=== PATIENT | female | born 1935 | race Caucasian/White ===

== ENCOUNTER → 2017-09-09 | Outpatient (CLI) | payer MEDICARE, BC | LOC: MC.RAD 13:28 | DX: Z12.31 Encounter for screening mammogram for malignant neoplasm of breast (principal) ==

== ENCOUNTER 2019-06-22 15:14 | Inpatient (IN) | payer MEDICARE, BC ==
[~2019-06-22] VITALS: Ht 152.4 cm; Wt 75.0 kg
[~2019-06-22 15:14] MED LIST: ALDACTONE 25MG25 M1 PO; ASPIRIN E.C. 8181 MG PO; BENADRYL25 M2 PO; CRANBERRY FRUI425 MG PO; DAZIDOX10 MG PO; LOPRESSOR 550 MG/TAB PO; Lidocaine 4% Patch TP; MEDROL 4MG DOSPA4 MG PO; MIRALAX PA17 GM/Dose PO; PEPCID AC 10MG10 MG PO; REQUIP 0.5MG0.5 MG PO; SENNA-S 50 MG-81 TAB PO; STOOL SOFTENER100 M2 PO; TIMOLOL MALEATE5 M1 OU; TOPROL XL 50MG50 MG PO; TYLENOL 325MG325 MG PO; VITAMIN D31000 I1 PO; VOLTAREN GEL 1%1 TU TP; XALATAN EYE DROPS OU
[2019-06-22 18:36] VITALS: BP 179/79; PULSE 89; TEMP 97.5
--- NOTE | 2019-06-22 23:55 | NUR ---
Pt. laying in bed at this time. Pt. is A&OX3, assessment complete. Pt. reported back pain at a 7 on pain scale, gave pain meds per orders. Pt. denies further needs, call light within reach.
[2019-06-23 06:10] VITALS: BP 156/66; PULSE 83; TEMP 97.5
[2019-06-23 15:57] VITALS: BP 163/62; PULSE 86; TEMP 97.9
--- NOTE | 2019-06-23 16:34 | NUR ---
Patient given prn suppository to help with bowel movement this afternoon. Patient had a small BM, but was having excruciating pain when sitting on toilet. Patient is currently lying on in bed on her side. Family is by her side. Will continue to monitor.
--- NOTE | 2019-06-23 16:37 | NUR ---
NEELAM met with the patient and the patient's daughter's (Frances and Danyelle) to complete initial intake, as the patient is new to [facility]. The patient lives alone in [place]. Danyelle and Frances state that they both live in [place]. The patient reports independence with ADLs prior to hospitalization and has a cane. The patient's PCP is Dr. Mustapha Gonsales and she receives her medications at [facility]. She reports no difficulties obtaining her meds. The patient does not have advanced directives in EMR, but she states that she does have a DPOA-HC completed. She states that she designated all three of her children: Frances Chapa (ph#[phone]), Danyelle Baker (ph#[phone]), and Luan Keith. NEELAM then reviewed the IPR Team Conference Note with the patient and patient's daughters and discussed the teams recommendation of re-evaluating next Friday and having a family conference. The patient and her daughters were in agreeance to the plan. A family meeting was scheduled for next Friday, 06/30, at 1015. NEELAM to inform IPR Director and will continue to follow.
--- NOTE | 2019-06-23 18:30 | NUR ---
Patient attended all therapies today. Tolerated diet fairly well. Patient had pain throughout the day see new orders per Dr. Moore for Ibuprofen prn, Cindy changed from scheduled to PRN Q 4 Hours and Tylenol PRN. Patient brought in meds and they were sent to pharmacy to be labeled. Patient pain has been more focused on her upper back thighs and this causes pain of 8-10 when sitting on toilet or shower chair. Patient was given prn suppository and this has helped her with having two small bowel movements. Patient was not able to tolerate sitting on the commode so she was placed on her left side and has been able to go on her bed pad with staff cleaning her up. Will continue to monitor.
--- NOTE | 2019-06-23 21:10 | NUR ---
Family left at this time for the night. Patient alert and oriented. Reports high level of sacral pain and roxycodone 10mg given along with sceheduled meds. Declines snack. States had food earlier about 1 hour ago. Lights turned off.
--- NOTE | 2019-06-24 02:27 | NUR ---
Patient rests with eyes closed. Respirations with ease.
--- NOTE | 2019-06-24 05:00 | NUR ---
Upon return from BSC, patient reports 8/10 pain and roxycodone 10mg given po.
[2019-06-24 05:42] VITALS: BP 143/60; PULSE 75; TEMP 98.7
[2019-06-24 07:09] LABS: BASO # 0.1 (0.0-0.2); BASO % 0.4 % (0.0-2.0); EOS # 0.2 (0.0-0.7); EOS % 1.8 % (0-4.0); GRAN # 10.2 (1.4-6.5); GRAN % 76.9 % (42.2-75.2); HEMATOCRIT 37.5 % (37.0-47.0); LYMPH # 1.5 (1.2-3.4); LYMPH % 11.2 % (20.0-51.0); MEAN CELL VOLUME 88 fl (80.0-100.0); MEAN CORPUSCULAR HEMOGLOBIN 28 pg (27.0-31.0); MEAN CORPUSCULAR HGB CONC 32 g/dl (33.0-37.0); MEAN PLATELET VOLUME 10.1 fl (7.4-10.4); MONO # 1.2 (0.1-0.6); PLATELET COUNT 349 K/mm3 (130-400); RED BLOOD COUNT 4.26 M/mm3 (4.10-5.30); REDCELL DISTRIBUTION WIDTH-CV 12.9 % (11.5-14.5)
[2019-06-24 07:25] LABS: CALCIUM 9.2 mg/dL (8.4-10.2); CREATININE, serum 0.59 (0.52-1.25); POTASSIUM 4.5 mmol/L (3.4-5.0)
--- NOTE | 2019-06-24 08:00 | NUR ---
UPON ENTRY TO THE ROOM THIS MORNING THE PATIENT IS SITTING UP IN THE CHAIR. PATIENT IS A&OX4. VSS. BOWEL SOUNDS ACTIVE ALL FOUR QUADRANTS. PATIENT TOLERATING DIET WITHOUT ANY COMPLAINTS OF N/V. POSITIVE PEDAL PULSES EQUAL BILATERALLY. 1+ PITTING-EDEMA TO BLE. ECCHYMOSIS TO RIGHT EYE NOTED. CALL LIGHT WITHIN REACH. PATIENT DENIES ANY OTHER NEEDS AT THIS TIME.
[2019-06-24 15:03] VITALS: BP 150/69; PULSE 76; TEMP 97.5
--- NOTE | 2019-06-24 18:54 | NUR ---
REPORT GIVEN TO MAYI MARIE.
--- NOTE | 2019-06-25 00:45 | NUR ---
PT UP TO BSC WITH MOD ASSIST TO VOID. PT UNABLE TO TOLERATE SITTING ON BSC VERY LONG- VERY PAINFUL COCCYX AND RT BUTTOCK AREA. PT GETTING APPROX [id number]. HAS GREAT URGENCY AND PRESSURE. BLADDER SCANNED WITH 500CC RESIDULA AFTER VOIDING 100CC CLEAR DILUTE URINE. CALLED ANDRZEJ FLAHERTY. UNABLE TO SPEAK AT THIS TIME. WILL RETURN MY CALL GEOVANNI.
--- NOTE | 2019-06-25 01:57 | NUR ---
DIRECTOR OF ARCHIVES ASSISTED PT TO BSC. VERY PAINFUL. UNABLE TO VOID. PLACED #16FR BURDICK WITH IMMEDIATE RETURN OF CLEAR DILUTE URINE 500CC. ASSISTED BY ALANA Clemente RN CHARGE NURSE. PT RELATES RELIEF NOW.
[2019-06-25 06:00] VITALS: BP 160/68; PULSE 87; TEMP 98.5
--- NOTE | 2019-06-25 07:50 | NUR ---
Report from MAYI Gibson. Pt called for assist sitting up for breakfast. Attempted to toilet, scant void, to chair, needed feet up, could not kevin, to bed on left side, enc to eat, PRN pain meds, pt tearful from pain.
--- NOTE | 2019-06-25 11:12 | NUR ---
NEELAM met with the patient and patient's daughter, Frances. The patient was resting. She states that she had a rough night and morning and that her pain in limiting her, but that she trying to push through. SW provided support. NEELAM informed the patient and her daughter of SW rotation. The patient and her daughter did not have any other questions or concerns at this time.
--- NOTE | 2019-06-25 11:26 | NUR ---
Dr. Moore orderd UA for frequent urgency overnight, now retention, groin pain. Ice pack to low back, repositioned left side with pillow between legs and behind back.
--- NOTE | 2019-06-25 13:41 | NUR ---
Attempted to void, cleansed with benzo wipes.
--- NOTE | 2019-06-25 14:11 | NUR ---
After pt returned to bed from toileting, told daughters she felt urge to go, then was incont in pull up, bladder scanned, PVR 0-40 ml. Palpable firmness in lower abdomen but pt denies pain/tenderness. Pt agreeable to attempt toileting again without any output. Changed. Pt with PT.
[2019-06-25 18:11] VITALS: BP 127/57; PULSE 78; TEMP 97.6
[2019-06-25 18:51] LABS: COLLECTION METHOD CLEAN CATCH
[2019-06-25 19:02] LABS: MUCOUS Present /lpf; PH 5 (5-8); SQUAMOUS EPITHELIAL 0-2 /hpf; URINE APPEARANCE Hazy; URINE BACTERIA Rare /hpf; URINE BILIRUBIN Negative (NEGATIVE); URINE BLOOD 1+ (NEGATIVE); URINE COLOR Yellow; URINE GLUCOSE Negative (NEGATIVE); URINE KETONE Negative (NEGATIVE); URINE LEUKOCYTE ESTERASE 1+ (NEGATIVE); URINE NITRATE Negative (NEGATIVE); URINE PROTEIN(semi-quant) Negative (NEGATIVE); URINE UROBILINOGEN Negative (NEGATIVE)
--- NOTE | 2019-06-25 20:30 | NUR ---
PT RESTING IN BED. FAMILY AT BEDSIDE. VERY SUPPORTIVE. PT STILL HAVING SACRAL/LT BUTTOCK PAIN. SEE MAR FOR PAIN MAD GIVEN. ICE PACK PLACED TO LT BUTTOCK FOR SHORT WHILE. ASSISTED PT TO BSC. URINARY URGENCY THEN VOIDS 0-50CC EACH TIME. PT UNABLE TO TOLERATE SITTING ON BSC BUT A MINUTE OR TWO. TOO PAINFUL. PT WEARS BRIEFS FOR OCCASIONAL INCONTINENCE. WILL BLADDER SCAN WHEN AVAILABLE.
--- NOTE | 2019-06-25 20:39 | NUR ---
BLADDER SCANNED 235CC AFTER VOIDING 50CC CLEAR URINE. ENC PT TO DRINK MORE.
--- NOTE | 2019-06-25 21:20 | NUR ---
Educated pt and two daughters about pain medications and management, enc recording in notebook and wrote how often PRNs available, reminded pt to call for meds. Prior to supper, pt toileted with only BM, then got up again with AIRPLANE PATROL PILOT and had output and sample sent to lab. Report to MAYI Gibson.
--- NOTE | 2019-06-26 04:40 | NUR ---
PT C/O BLADDER PRESSURE. INCONT LG AMT IN BRIEFS. PT CLEANED UP. DESITIN TO REDNESS TOINNER BUTTOCKS AREA. SEE MAR FOR AZO GIVEN.
[2019-06-26 06:02] VITALS: BP 160/71; PULSE 82; TEMP 97.4
--- NOTE | 2019-06-26 11:00 | NUR ---
Patient still reporting severe pain to the back of her upper thighs, given prn pain meds, with some effect. Will continue to monitor.
--- NOTE | 2019-06-26 11:45 | NUR ---
Call placed to Dr. Moore regarding patient having difficulty urinating this morning. Bladder scan completed at 7:40 AM and had urine retention of 278 ml. See new orders per Dr. Moore for Straight Cath UA to be completed and sent out to lab.
[2019-06-26 13:40] LABS: COLLECTION METHOD CATHETER
[2019-06-26 13:54] LABS: MUCOUS Present /lpf; PH 5 (5-8); SQUAMOUS EPITHELIAL 0-2 /hpf; URINE APPEARANCE Clear; URINE BACTERIA None Seen /hpf; URINE BILIRUBIN Negative (NEGATIVE); URINE BLOOD Negative (NEGATIVE); URINE COLOR Amber; URINE GLUCOSE Negative (NEGATIVE); URINE KETONE Negative (NEGATIVE); URINE LEUKOCYTE ESTERASE Negative (NEGATIVE); URINE NITRATE Positive (NEGATIVE); URINE PROTEIN(semi-quant) Negative (NEGATIVE); URINE RBC 0-2 /hpf; URINE UROBILINOGEN >=4.0 mg/dL (NEGATIVE)
[2019-06-26 16:59] VITALS: BP 146/77; PULSE 74; TEMP 97.3
--- NOTE | 2019-06-26 18:08 | NUR ---
Patient attended all therapies today. Tolerated diet well. Has gotten up to use the bathroom multiple times today due to urinary frequency. New urine collection was completed and sent to lab per orders of Dr. Moore. Will continue to monitor. Patient rating pain 8/10 this afternoon and has been given prn pain meds with some effect throught the day. Will continue to monitor.
--- NOTE | 2019-06-26 21:00 | NUR ---
PT RESTING IN BED. FAMILY AT BEDSIDE. VERY SUPPORTIVE. NO NEEDS AT THIS TIME.
[2019-06-27 05:28] VITALS: BP 159/88; PULSE 80; TEMP 97.6
--- NOTE | 2019-06-27 06:37 | NUR ---
PT MOANING LOUDLY. FEELS BLADDER DISCOMFORT AND URGENCY. PT UNABLE TO HOLD URINE UNTIL TRANSFERRED TO BSC. URINATED XLG AMT OF ORANGE (AZ0) INCONTINENT. CHANGE TOP BEDDING. STILL HAVING SOME LT LOW ABD BLADDER SPASM. KPAD STATRED. SEE MAR FOR MOTRIN. PT VERY UPSET WITH Q1H URNARY URGENCY. REASSURED PT.
--- NOTE | 2019-06-27 08:23 | NUR ---
Patient resting in bed at this time. Was a one assist to bed side commode. Urine takes peridium for urine pain, urine is orange at this time. Patient had an incontinent episode this morning of urine. Had a small smeary bowel movement. Will continue to monitor.
[2019-06-27 17:51] VITALS: BP 162/55; PULSE 85; TEMP 97.7
--- NOTE | 2019-06-27 19:19 | NUR ---
Patient went for a walk in the [facility] hallway today and then went for a short ride via wheelchair down stairs with her family to see her dogs. Patient tolerated short trip fairly well. Patient had good urine output today. She is still feeling the pressure/urge to urinate and was given AZO so urine is orange in color. Patient had daughters by her side most of the day today. Patient's buttocks was red and desinex was applied to bottom. Patient tolerated diet well this shift. Pain was controlled with prn Cindy, but family had asked if she could get an order for Robaxine. This was communicated to night nurse to ask Dr. Moore tomorrow.
--- NOTE | 2019-06-27 19:30 | NUR ---
PT RESTING IN BED. FAMILY AT BEDIDE. VERY SUPPORTIVE. DENIES NEEDS AT THIS TIME. CALL LIGHT IN REACH.
--- NOTE | 2019-06-27 19:33 | NUR ---
SHIFT REPORT RECEIVED FROM ALLYSSA BUTTS . REPORTED PT HAD 800CC TOTAL UO ON DAYSHIFT. STILL FREQUENT AND URGENT.
--- NOTE | 2019-06-27 21:00 | NUR ---
ASSISTED TO BSC. PT UNABLE TO VOID. BACK TO BED. BLADDER SCANNED- SHOWED 0CC. PT RELATES HAS URGE. PLACED DIAPER AND VPAD FOR INCONTIENCE. PT INCONT XLARGE AMT OF ORANGE URINE IN DIAPER. PT FEELS IMMEDIATE RELIEF. SEE MAR FOR ANY PAIN MED GIVEN. CALL LIGHT IN REACH. BED ALARM SET. KPAD STARTED FOR PT COMFORT.
[2019-06-28 05:14] VITALS: BP 151/48; PULSE 76; TEMP 98.3
[2019-06-28 05:16] VITALS: BP 151/48
--- NOTE | 2019-06-28 10:05 | NUR ---
Pt toileted but did not void, pull up and pad in place. Son was visiting earlier, daughter here now, reviewed pain med regime again, writing on board.
--- NOTE | 2019-06-28 14:43 | NUR ---
Pt attempted to toilet upon return from PT, unable to void, returned to bed, positioned on left side, pillow between knees and to back with K-Pad to back. Daughters assisting with ordering meals, pain med given.
[2019-06-28 16:35] VITALS: BP 142/98; PULSE 71; TEMP 97.8
--- NOTE | 2019-06-28 19:30 | NUR ---
HS meds along with tramadol and azo for pain and urinary retention given. Patient up mod assist of 1 to the bathroom and voids 250 mls orange urine and rests back in bed. Nurse assists to wipe patient after and assist with pullup up on left side. Daughter at bedside and very attentive. Took bites of cracker with HS meds.
--- NOTE | 2019-06-28 22:35 | NUR ---
Rests quietly in bed with eyes closed. Respirations with ease.
--- NOTE | 2019-06-29 00:43 | NUR ---
Patient awake and up to the bathroom and back to bed. Assisted to repostion up in bed. States has been resting good until now. Ibuprofen given for pain with crackers.
--- NOTE | 2019-06-29 02:44 | NUR ---
Patient rests with eyes closed. Respirations with ease.
[2019-06-29 03:39] VITALS: BP 157/69; PULSE 85; TEMP 98.1
--- NOTE | 2019-06-29 08:45 | NUR ---
Patient resting in recliner at this time, call light in reach, slip proof socks on and call light by her side. Patient reported sleeping pretty good last night. She feels that she had less incontinence last night. Pain 6/10 this morning to back of legs. Given prn pain meds with some effect. Will continue to monitor.
--- NOTE | 2019-06-29 15:34 | NUR ---
SW met with patient and family to follow up and to discuss the family conference that is scheduled. Family reports they will be present for the conference tomorrow at 10:15am. SW will continue to follow.
--- NOTE | 2019-06-29 16:10 | NUR ---
Patient reported having some indegestion at 1545 this afternoon. Requested some Mylanta. Giuliana called see new orders. VSS at this time.
[2019-06-29 16:12] VITALS: BP 157/44; PULSE 76
[2019-06-29 16:52] VITALS: BP 146/63; PULSE 73; TEMP 97.7
--- NOTE | 2019-06-29 19:48 | NUR ---
Patient has not had any more epispodes of indegestion this afternoon. Patient has a history of indegestion and reports that when she is at home she would just go to her med cabinet and take a swig of mylanta. Patient had no jaw pain or arm pain, she had no nausea and VSS at time of the last indigestion episode. Will continue to monitor. Gave report to night nurse.
--- NOTE | 2019-06-29 20:30 | NUR ---
HS meds all reviewed along with roxycodone for pain and given with crackers. Family members in visiting.
--- NOTE | 2019-06-29 21:30 | NUR ---
Reports pain meds helped. Rests in bed.
--- NOTE | 2019-06-30 01:37 | NUR ---
Patient up to BSC per request and has difficulty sitting due to tail bone and back of leg pain. Rests back in bed and pain med given.
[2019-06-30 04:34] VITALS: BP 172/67; PULSE 84; TEMP 97.1
--- NOTE | 2019-06-30 06:19 | NUR ---
Patient up to the bathroom several times during the night to void. Desitin cream applied to inner buttucks.
[2019-06-30 07:18] LABS: CALCIUM 9.1 mg/dL (8.4-10.2); CREATININE, serum 0.62 (0.52-1.25); MAGNESIUM 2.2 mg/dL (1.6-2.3); POTASSIUM 4.7 mmol/L (3.4-5.0)
[2019-06-30 08:30] LABS: GRAN % 70.2 % (42.2-75.2); HEMATOCRIT 35.6 % (37.0-47.0); HEMOGLOBIN 11.2 g/dl (12.5-16.0); MEAN CELL VOLUME 88 fl (80.0-100.0); MEAN CORPUSCULAR HEMOGLOBIN 28 pg (27.0-31.0); MEAN CORPUSCULAR HGB CONC 32 g/dl (33.0-37.0); PLATELET COUNT 409 K/mm3 (130-400); RED BLOOD COUNT 4.03 M/mm3 (4.10-5.30); REDCELL DISTRIBUTION WIDTH-CV 13.2 % (11.5-14.5)
[2019-06-30 08:31] LABS: BASO % 0.3 % (0.0-2.0); EOS # 0.2 (0.0-0.7); EOS % 1.8 % (0-4.0); GRAN # 6.9 (1.4-6.5); LYMPH # 1.6 (1.2-3.4); LYMPH % 16.6 % (20.0-51.0); MEAN PLATELET VOLUME 10.1 fl (7.4-10.4); MONO # 1.1 (0.1-0.6); MONO % 10.8 % (1.7-9.3)
--- NOTE | 2019-06-30 13:32 | NUR ---
SW attended a family conference with patient and her family. IPR director, PT, and OT were also present. IPR director explained the purpose of the conference. PT and OT report patient has made progress but would benefit from another week of therapy. Patient continues to have issues with some seated tasks due to pain. IPR team expressed concern with patient living alone after discharge. Patient's family reports they will stay with patient until she no longer needs supervision with certain tasks. A tentative discharge date was set for Saturday 07/07. Patient will discharge home and receive home health services. SW will follow up with patient at a later time to discuss home health options.
--- NOTE | 2019-06-30 15:16 | NUR ---
SW followed up with patient and daughters to discuss home health. SW provided [email or web address] resource list for patient to review. Patient and daughters report they have used [facility] in the past and would like to use their services again. NEELAM contacted Lisbeth from [facility] and faxed referral.
[2019-06-30 18:00] VITALS: BP 145/45; PULSE 55; TEMP 97.5
--- NOTE | 2019-06-30 19:30 | NUR ---
Pulled INT to patient right forearm. Dr. Moore had DC'd patient's antibiotic. Catheter was intact at time of removal. Patient tolerated well. Secured area with gauze and coban.
--- NOTE | 2019-06-30 20:57 | NUR ---
Urology, Dr. Freeman stopped by to visit with patient and family this evening. He discussed patient using a pessary to help with her bladder issue. Dr. Freeman will be coming by with his PA tomorrow per family's report to measure patient for this device and to discuss it's use. This nurse spoke with family and they are not sure if their mother would be able to use this device. Family would like for nurse to be present in room when patient is seen by Dr. Freeman tomorrow to communicate this as well as report to patient's family what all was discussed and determined. This was communicated to the night nurse.
--- NOTE | 2019-06-30 21:00 | NUR ---
SHIFT REPORT FROM ALLYSSA GOLDMAN. ALLYSSA HAD DC'D RT FA INT NEEDLE ORDERED. ITE CLEAN AND DRY. PT C/O PELVIC PAIN. ALITTLE TOO EARLY FOR OXYCODONE. ASSIST PT TO BSC. VOIDED 150CC SL ESCOBAR CLEAR URINE. MAXIPAD DRY. UNABLE TO TOLERATE SITTING ON BSC LONG D/T INCREASED PAIN. BACK TO BED. SEE MAR FOR PAIN MED. CALL LIGHT IN REACH. BED ALARM SET.
--- NOTE | 2019-06-30 21:04 | NUR ---
Patient's family had requested that patient try using Robaxin to help with pain. See new orders per Dr. Moore to start BID. He said that this medication can cause a lot of drowsiness and to monitor patient for this. If she becomes too drowsy this can be stopped. He put her on a low dose. See additional nursing notes regarding this.
--- NOTE | 2019-07-01 02:41 | NUR ---
COW BUYER ASSISTED TO BSC. PT C/O INCREASED PAIN TO BUTTOCKS/PELVIC AND LEG AREAS. HAD DIFFICULTY TRANSFERRRING BACK TO BED. UNABLE TO EMPTY BLADDER. BLADDER SCAN : 366CC RESIDUAL. PT ABLE TO EMPTY BLADDER BETTER WHILE IN BED. CLEANED UP. SEE MAR FOR PAIN MED GIVEN. PT HAS DIFFICULTY ROM LT AHOUDER- ROTATOR CUFF. CALL LIGHT IN REACH. BED ALARM SET.
[2019-07-01 06:00] VITALS: BP 152/59; PULSE 86; TEMP 97.6
--- NOTE | 2019-07-01 06:20 | NUR ---
PT REPORTS SHE HAD A RESTFUL NIGHT. NO NEEDS AT THIS TIME.
[2019-07-01 16:46] VITALS: BP 156/56; PULSE 85; TEMP 97.5
--- NOTE | 2019-07-01 19:59 | NUR ---
SUMMARY: Report from MAYI Gibson. Pt was incont of urine while supine in bed into pull up with large pad, difficulty voiding on toilet d/t pain. Desitin cream to crack in gluteal cleft, powder under breasts, skin pink. Reviewed PRN pain med plan to alternate between miguel and motrin, pt states she seemed to have better control today. Family visited throughout the day, agreeable to pain PRNs. Pt and family expressed concerns of urology placing Pessary- Frieda Mortensen did exam and did not think pessary appropriate at this time as bladder is not prolapsed, but did recommend f/u OP. Report to MAYI Gibson.
[2019-07-02 04:54] VITALS: BP 157/57; PULSE 92; TEMP 98
--- NOTE | 2019-07-02 13:57 | NUR ---
NEELAM contacted Lisbeth from [facility]. Lisbeth reports she did not get a referral. NEELAM faxed a referral and scanned referral. Lisbeth reports she did receive it and will do their assessment with the patient on the 07/08. superintendent oil well services will continue to follow.
--- NOTE | 2019-07-02 17:12 | NUR ---
Pt incont of BM within pad, pt changed but needed cris cares provided, applied A&D oint to vaginal area and desitin to tailbone. To recliner with feet up and slouched- as pt most comfortable in this position when in the chair. Call lt in reach.
[2019-07-02 18:13] VITALS: BP 114/41; PULSE 77; TEMP 97.4
--- NOTE | 2019-07-02 21:00 | NUR ---
Patient up to the bathroom standby assist with walker. Manages pants up and down and changes pad insert. Nurse wipes patient and applies desitin. Rests back in bed and slowly moves up in bed. Has high level of pain and roxycodone given with crackers.
--- NOTE | 2019-07-02 22:45 | NUR ---
Rests with eyes closed. Respirations with ease.
--- NOTE | 2019-07-03 01:46 | NUR ---
rests quielty in bed. Respirations with ease.
--- NOTE | 2019-07-03 01:56 | NUR ---
Rests with eyes closed. Respirations with ease.
--- NOTE | 2019-07-03 03:27 | NUR ---
Rests with eyes closed. Respirations with ease.
[2019-07-03 04:29] VITALS: BP 179/69; PULSE 92; TEMP 97.6
[2019-07-03 16:56] VITALS: BP 157/59; PULSE 75; TEMP 97.4
--- NOTE | 2019-07-03 18:00 | NUR ---
Complained of back pain and leg pain frequently. Roxicodone and Motrin given prn as well as scheduled meds for pain. Ambulatory with walker to bathroom frequently for small soft bowel movements.
[2019-07-04 04:49] VITALS: BP 182/59; PULSE 82; TEMP 97.3
--- NOTE | 2019-07-04 06:19 | NUR ---
BP rechecked 137/48. C/O burning with urination. Has been up to the bathroom several times during the night. When she gets to the stool she can only sit for a short time and sometimes does not empty her bladder.
--- NOTE | 2019-07-04 09:27 | NUR ---
PT WAS LAYINGIN BED WHEN NURSE ALKED IN THIS AM. PAIN WAS CONTROLLED AND SHE WAS EATING BREAKFAST. ATE 100% MEAL. GIVEN AM MEDS WITH WATER. ASSISTED PT TO GET OOB AND USE WALKER/GAIT BELT TO GET TO BR. GAIT STEADY AND NON HURRIED. PERIAREA CLEANED FOR PT SHE REPORTS SHE CANNOT REACH TO CLEAN. ALYSSA AREA IS REDDISH AND TENDER, PUT BARRIER CREAM TO AREA. PT ASSISTED INTO RECLINER, LEGS RAISED AND GIVEN CALL LIGHT, ALARMS ON.
[2019-07-04 17:12] VITALS: BP 138/48; PULSE 69; TEMP 97.6
--- NOTE | 2019-07-04 22:02 | NUR ---
Pt c/o not feeling well. Feels like she is bloated. Bladder scan shows 223mL but has not been up to BR for about 30min. Appears restless. VS monitored. Pain rated 7/10. States she feels nervous.
[2019-07-04 22:06] VITALS: BP 155/59; PULSE 79; TEMP 97.3
[2019-07-05 05:15] VITALS: BP 155/56; PULSE 73; TEMP 97.5
--- NOTE | 2019-07-05 14:37 | NUR ---
Report from MAYI Spencer. Pt given pain meds prior to therapy, had received meds early this morning. Sign to remind pt to ask for miguel and motrin still posted in room. Family visited later today, reviewed plans for f/u appts. Nurse left ortho a message for appt. Pt has own hand sole sewer already scheduled. Bowel meds given, pt voided on toilet this morning. Pt made Mod I in rm w/ walker this afternoon.
[2019-07-05 16:50] VITALS: BP 152/62; PULSE 76; TEMP 97.5
--- NOTE | 2019-07-06 01:08 | NUR ---
PATIENT STATES HAS RESTED SOME. PAIN MED GIVEN. JUST RETURNED FROM THE BATHROOM.
--- NOTE | 2019-07-06 02:35 | NUR ---
Rests in bed with eyes closed.
[2019-07-06 03:47] VITALS: BP 156/60; PULSE 76; TEMP 97.4
--- NOTE | 2019-07-06 06:00 | NUR ---
PATIENT RESTS IN BED WITH EYES CLOSED.
--- NOTE | 2019-07-06 07:50 | NUR ---
Patient is Mod I in her room. Currently resting in bed at this time, call light in reach and reports not sleeping very well last night. She ate 100% of her breakfast this morning. Reporting pain 8/10 this morning and given prn miguel, will continue to monitor.
--- NOTE | 2019-07-06 10:53 | NUR ---
Washed under patient's breasts following her morning shower and applied desenex powder. Patient tolerated well.
--- NOTE | 2019-07-06 10:59 | NUR ---
NEELAM met with patient to follow up. Patient will discharge home tomorrow 07/06 with continued PT and OT through [facility]. Patient's daughter will be staying with patient for continued supervision with ADLs. NEELAM presented IM to patient. She verbalized understanding, signed and was provided a copy. NEELAM will fax discharge orders once they're completed tomorrow 07/06.
--- NOTE | 2019-07-06 13:13 | NUR ---
Patient refused Tylenol this morning instead wanting her Roxicodone. Family is visiting and has requested that the Robaxine be discontinued as they feel that their mother is a lot more anxious and memory has worsened since starting that med. This will be communicated to the physician.
[2019-07-06 17:36] VITALS: BP 150/51; PULSE 72; TEMP 97.6
--- NOTE | 2019-07-06 21:00 | NUR ---
HS meds all reviewed and given. Daughter here and left for the night. States she will be in at 0930 tomorrow am to review discharge information with nurse, doctor and oncology social work. Patient rests back in bed. States just had good bm at 2000 tonight.
--- NOTE | 2019-07-07 03:09 | NUR ---
Patient resting quietly in bed. Respirations with ease.
[2019-07-07 04:38] VITALS: BP 125/44; BP 125/54; PULSE 78; TEMP 97.9
--- NOTE | 2019-07-07 05:29 | NUR ---
Patient states rested well last night. Up 2-3 times on her own to the bathroom. Reports back and thigh pain 8/10 and roxycodone 10mg given.
[2019-07-07] MEDS ORDERED: A & D OINT TUBE60 GM TP (07:45)
[2019-07-07] MEDS ORDERED: IBU600 MG PO (07:48)
[2019-07-07] MEDS ORDERED: ROBAXIN 75750 MG/TAB PO (08:51)
--- NOTE | 2019-07-07 08:51 | NUR ---
Report from MAYI Sabillon. Pt in bed, calls for assistance for amb and cris cares. C/O 10 pain this morning. Per report, pt and family had asked not to give pt robaxin. Pt was tolerating meds on Friday when this nurse provided cares, no anxiety noted, did rest between therapies. Will hold off on robaxin this morning until can review with family. Discussed with Dr. Ramirez. Pt does not recall why meds were held, has difficulty remembering which pain meds she has had or should ask for, even with written reminder on board. HELEN Meadows reports pt states she was barely able to stand/kevin amb this morning d/t pain in legs and back. Gave 5mg more Cindy than usual and motrin this morning than pt usually requires prior to a full therapy schedule. Plan to discharge pt today, no therapies today. Pt in bed, call lt in reach. Was tearful this morning upon this nurse's arrival.
--- NOTE | 2019-07-07 09:32 | NUR ---
Patient will discharge home today with [facility], PT/OT. NEELAM contacted Lisbeth, from [facility] and faxed discharge orders. Lisbeth reports patient's first visit is scheduled for tomorrow 07/08.
--- NOTE | 2019-07-07 09:32 | NUR ---
Pt called for assist to toilet, is Mod I in Rm w/ walker, got herself to BR and called for help to finish, moaning and crying in pain, gave pt time to do cris cares and change pad, she removed pad but unable to do rest, assisted with this, then pt pulled up brief and pants and returned to bed.
--- NOTE | 2019-07-07 15:11 | NUR ---
Reviewed discharge instructions with pt and daughters Danyelle and Frances.
== END 2019-07-07 15:20 | disposition home health service (06) | DRG 947 ==
PROVIDERS: ADMIT Internal Medicine
DX: R53.81 Other malaise (principal); J96.01 Acute respiratory failure with hypoxia; I50.9 Heart failure, unspecified; G25.81 Restless legs syndrome; M48.00 Spinal stenosis, site unspecified; D72.829 Elevated white blood cell count, unspecified; S32.10XD Unspecified fracture of sacrum, subsequent encounter for fracture with routine healing; W18.30XD Fall on same level, unspecified, subsequent encounter; N81.10 Cystocele, unspecified; R30.0 Dysuria; M06.9 Rheumatoid arthritis, unspecified; R33.9 Retention of urine, unspecified; H40.9 Unspecified glaucoma; I11.0 Hypertensive heart disease with heart failure; Z79.82 Long term (current) use of aspirin; Z79.891 Long term (current) use of opiate analgesic; Z90.710 Acquired absence of both cervix and uterus; Z88.5 Allergy status to narcotic agent
CPT/HCPCS: 99222-AI; 99232-AI; 99233-AI; A4216; J0696; J1650

== ENCOUNTER 2019-09-04 20:34 | Inpatient (IN) | payer MEDICARE, BC ==
[~2019-09-04] VITALS: Ht 152.4 cm; Wt 85.0 kg
[~2019-09-04 20:34] MED LIST changes: +A & D OINT TUBE60 GM TP; +IBU600 MG PO; +ROBAXIN 75750 MG/TAB PO
[2019-09-04] MEDS ORDERED: TYLENOL 500MG500 MG PO (21:48)
[2019-09-04 22:06] LABS: BASO % 0.4 % (0.0-2.0); EOS # 0.6 (0.0-0.7); EOS % 5.5 % (0-4.0); GRAN # 8.3 (1.4-6.5); GRAN % 82.9 % (42.2-75.2); HEMATOCRIT 35.7 % (37.0-47.0); HEMOGLOBIN 11.4 g/dl (12.5-16.0); LYMPH # 0.6 (1.2-3.4); LYMPH % 5.6 % (20.0-51.0); MEAN CELL VOLUME 90 fl (80.0-100.0); MEAN CORPUSCULAR HEMOGLOBIN 29 pg (27.0-31.0); MEAN CORPUSCULAR HGB CONC 32 g/dl (33.0-37.0); MEAN PLATELET VOLUME 9.9 fl (7.4-10.4); MONO # 0.5 (0.1-0.6); MONO % 5.2 % (1.7-9.3); PLATELET COUNT 222 K/mm3 (130-400); RED BLOOD COUNT 3.99 M/mm3 (4.10-5.30); REDCELL DISTRIBUTION WIDTH-CV 13.9 % (11.5-14.5)
[2019-09-04 22:07] LABS: INR 1.4 (0.8-3.0); PROTHROMBIN TIME 15.9 SECONDS (9.7-12.8)
[2019-09-04 22:12] LABS: ALANINE AMINOTRANSFERASE 27 U/L (9-52); ALBUMIN 3.6 gm/dL (3.5-5.0); ALKALINE PHOSPHATASE 110 U/L (50-136); ANION GAP 10 mmol/L (7-16); AST,SGOT 42 U/L (15-37); BILIRUBIN,TOTAL 0.5 mg/dL (0.0-1.0); BLOOD UREA NITROGEN 16 mg/dL (7-17); CALCIUM 8.8 mg/dL (8.4-10.2); CARBON DIOXIDE 31 mmol/L (22-30); GLUCOSE 128 mg/dL (74-106); POTASSIUM 4.3 mmol/L (3.4-5.0); SODIUM 128 mmol/L (137-145); TOTAL PROTEIN 7.4 gm/dL (6.4-8.2)
[2019-09-04 22:16] LABS: CHLORIDE 88 mmol/L (98-107)
[2019-09-04 22:27] LABS: TROPONIN-I < 0.012 ng/mL (0.000-0.035)
[2019-09-04 22:57] LABS: ARTERIAL BLD GAS O2 SATURATION 97.6 % (92-100); ARTERIAL BLD GAS TCO2 CT 29.2; ARTERIAL BLOOD GAS BASE EXCESS 3.7 (-2-2); ARTERIAL BLOOD GAS PCO2 40.9 mmHg (35-45); ARTERIAL BLOOD GAS PO2 97.5 mmHg (80-100); ARTERIAL BLOOD GAS pH 7.45 (7.35-7.45)
[2019-09-04] MEDS ORDERED: CIPRO 500MG TA500 MG PO (23:24)
[2019-09-05 01:09] VITALS: BP 148/63; PULSE 50; TEMP 98.9
[2019-09-05 01:09] LABS: MAGNESIUM 1.6 mg/dL (1.6-2.3); PHOSPHOROUS 3.9 mg/dL (2.5-4.5)
[2019-09-05] MEDS ORDERED: PRILOSEC 20MG20 MG PO (01:14)
[2019-09-05] MEDS ORDERED: NEURONTIN300 MG/CAP PO (01:16)
[2019-09-05] MEDS ORDERED: DAZIDOX10 MG PO (01:16)
[2019-09-05] MEDS ORDERED: MELATONIN5 M1 PO (01:18)
[2019-09-05] MEDS ORDERED: ATIVAN 0.50.5 MG/TAB PO (01:20)
[2019-09-05 01:24] LABS: TROPONIN-I < 0.012 ng/mL (0.000-0.035)
[2019-09-05 01:25] LABS: C-REACTIVE PROTEIN 16.1 mg/dL (0.0-0.9)
[2019-09-05 05:35] LABS: ARTERIAL BLD GAS O2 SATURATION 94.2 % (92-100); ARTERIAL BLD GAS TCO2 CT 34.8; ARTERIAL BLOOD GAS BASE EXCESS 9.6 (-2-2); ARTERIAL BLOOD GAS HCO3 33.5 meq/L (22-26); ARTERIAL BLOOD GAS PCO2 42.6 mmHg (35-45); ARTERIAL BLOOD GAS PO2 66.7 mmHg (80-100); ARTERIAL BLOOD GAS pH 7.51 (7.35-7.45)
[2019-09-05 06:13] LABS: BASO % 0.4 % (0.0-2.0); EOS # 0.4 (0.0-0.7); EOS % 4.9 % (0-4.0); GRAN # 5.8 (1.4-6.5); GRAN % 80.3 % (42.2-75.2); HEMATOCRIT 38.1 % (37.0-47.0); HEMOGLOBIN 12.1 g/dl (12.5-16.0); LYMPH # 0.6 (1.2-3.4); LYMPH % 7.8 % (20.0-51.0); MEAN CELL VOLUME 89 fl (80.0-100.0); MEAN CORPUSCULAR HEMOGLOBIN 28 pg (27.0-31.0); MEAN CORPUSCULAR HGB CONC 32 g/dl (33.0-37.0); MONO # 0.5 (0.1-0.6); MONO % 6.3 % (1.7-9.3); PLATELET COUNT 228 K/mm3 (130-400); RED BLOOD COUNT 4.29 M/mm3 (4.10-5.30); REDCELL DISTRIBUTION WIDTH-CV 14.1 % (11.5-14.5)
[2019-09-05 06:33] LABS: CALCIUM 8.9 mg/dL (8.4-10.2); CREATININE, serum 0.65 (0.52-1.25); POTASSIUM 3.3 mmol/L (3.4-5.0)
[2019-09-05 08:01] VITALS: BP 125/61; PULSE 114; TEMP 98.4
--- NOTE | 2019-09-05 08:15 | NUR ---
Pt arrived to the floor from the ED, Assessment completed. Pt laying in bed with daughters and granddaughter at bedside. Khushi Melendez APRN in room with pt at that time. At 0430 pt had an EKG that was abnormal. Stat labs drawn, and a Chest CT to r/o PE was performed. CT was negative. Pt is resting in wheelchair in her room on 3L 02. Report given to MAYI Munguia. No further concerns.
--- NOTE | 2019-09-05 08:19 | NUR ---
Pt assessment complete. Pt is sitting in her wheelchair upon entry, she is A/O x4. Her breathing is currently even and unlabored on 2L O2 via NC. Pt denies SOB at this time, see assessment for lung findings. Pt currently requesting something for her "restless legs". Denies pain anywhere else. No chest pain or palpitations. POC discussed with patient who verbalizes understanding. No needs at this time. Call light within reach.
[2019-09-05 11:35] VITALS: BP 127/65; PULSE 89; TEMP 97.3
--- NOTE | 2019-09-05 13:47 | NUR ---
Plan: To return home with daughter Frances as care [phone]. Patient also wished her daughter Danyelle Baker listed as her [phone] and they are listed as her DPOA. patient resides in [facility]. Assess: SW met with Patient and her daughter at patients bedside. Patient gave permission for her daughter to be present during the interview. Patient reports that she usues a walker and a wheel chair. patient reports that her PCP is Dr. Ryan with an upcoming appt this . Patient reports that she receives her medications from [facility] pharmacy with no complications. Patient did indicated discomfort with restless leg syndrom, however acknowledged that she was just provided with medications 20 minutes prior to SW coming in. Patient reported she would ocntinue tow ait for meds to start working and if there is no change she willcontact the nurse. Daughter raised some questions about getting home health services in regards to showering. Action: No additional concerns identified. gave patient HHS sheet to review.
[2019-09-05 16:06] VITALS: BP 128/74; PULSE 93; TEMP 97.6
--- NOTE | 2019-09-05 18:34 | NUR ---
Pt had uneventful day, complained of RLS. PRN medications administered. Pt able to ween off of oxygen and on RA through the day. No needs at this time. Call light within reach.
--- NOTE | 2019-09-05 20:44 | NUR ---
Report rcvd from MAYI Munguia. Pt laying in bed eating dinner. Assessment completed. Some c/o pain. Medications administered. Pt resting watching TV. Call light within reach. No further concerns.
[2019-09-05 21:02] VITALS: BP 124/62; PULSE 93; TEMP 97.5
[2019-09-06] VITALS (7 sets, daily range): BP systolic 111–155; BP diastolic 49–70; PULSE 84–98; TEMP 97.6–98.9
--- NOTE | 2019-09-06 02:13 | NUR ---
PATIENTsPo2 85% ON RA DURING SLEEP. PLACED ON 2 LPM NC WHILE SLEEPING .
--- NOTE | 2019-09-06 05:29 | NUR ---
Pt slept through the night. No c/o pain or discomfort. Ambulated to the bathroom several times and has become stronger. Pt still having irregular heart rhythms on ECGs. Patient is asymptomatic and typically sleeps through the heart rhythm changes. Patient is no longer on o2 and is satting at 95+% on RA. Call light within reach. No further concerns.
[2019-09-06 07:04] LABS: BASO % 0.4 % (0.0-2.0); EOS # 0.7 (0.0-0.7); EOS % 9.1 % (0-4.0); GRAN # 5.6 (1.4-6.5); GRAN % 75.1 % (42.2-75.2); HEMOGLOBIN 10.8 g/dl (12.5-16.0); LYMPH # 0.7 (1.2-3.4); LYMPH % 8.7 % (20.0-51.0); MEAN CELL VOLUME 90 fl (80.0-100.0); MEAN CORPUSCULAR HEMOGLOBIN 29 pg (27.0-31.0); MEAN CORPUSCULAR HGB CONC 32 g/dl (33.0-37.0); MEAN PLATELET VOLUME 9.5 fl (7.4-10.4); MONO # 0.5 (0.1-0.6); MONO % 6.3 % (1.7-9.3); PLATELET COUNT 234 K/mm3 (130-400); RED BLOOD COUNT 3.75 M/mm3 (4.10-5.30); REDCELL DISTRIBUTION WIDTH-CV 14.1 % (11.5-14.5)
[2019-09-06 07:16] LABS: CHOLESTEROL RISK RATIO 5.5; CREATININE, serum 0.75 (0.52-1.25); POTASSIUM 4.6 mmol/L (3.4-5.0)
[2019-09-06 07:18] LABS: HEMATOCRIT 33.7 % (37.0-47.0)
--- NOTE | 2019-09-06 07:29 | NUR ---
Report given to MAYI Munguia and student MAYI Sanders.
--- NOTE | 2019-09-06 09:16 | NUR ---
Initial visit; Patient thanked Reporting Consultant for looking in on her and offering God's blessings.
--- NOTE | 2019-09-06 09:33 | NUR ---
Pt assessment complete. Pt is laying in bed upon entry, she is A/O x4. Her breathing is even and unlabored at rest on 2L O2 via NC. Pt reports back pain and restless legs. PRN pain medication adminstered, Volteran gel placed to bilateral legs. Pt denies any N/V. Moved from the bed to the chair without difficulties. No needs at this time. Call light within reach.
--- NOTE | 2019-09-06 18:46 | NUR ---
Pt had uneventful day. Was getting up to the bedside cammode later tonight without difficulties, occasional buckling of knees. Continues to report some pain to legs, PRN medications administered. Pt and family aware of CT results. Report given to MAYI Rees.
--- NOTE | 2019-09-06 20:30 | NUR ---
Initial shift assessment done- states back pain 01/27-just had Roxicodone at shift change,, Lung sounds coarse, o2 at 2L/nc Tele on, Up to BSC with 2 assists-legs weak
[2019-09-07 03:42] VITALS: BP 156/56; PULSE 80; TEMP 98
[2019-09-07 04:46] LABS: PH 6 (5-8); SQUAMOUS EPITHELIAL 0-2 /hpf; URINE APPEARANCE Clear; URINE BACTERIA None Seen /hpf; URINE BILIRUBIN Negative (NEGATIVE); URINE BLOOD Negative (NEGATIVE); URINE COLOR Yellow; URINE GLUCOSE Negative (NEGATIVE); URINE KETONE Negative (NEGATIVE); URINE LEUKOCYTE ESTERASE Negative (NEGATIVE); URINE NITRATE Negative (NEGATIVE); URINE PROTEIN(semi-quant) Negative (NEGATIVE); URINE RBC 0-2 /hpf; URINE UROBILINOGEN Negative (NEGATIVE)
[2019-09-07 05:15] LABS: COLLECTION METHOD CLEAN CATCH
--- NOTE | 2019-09-07 06:24 | NUR ---
Quiet night- was given pain meds for back pain,, Up to BSC with assist- voiding without problems.-
[2019-09-07 06:41] LABS: BASO % 0.3 % (0.0-2.0); EOS # 0.7 (0.0-0.7); EOS % 9.7 % (0-4.0); GRAN # 4.9 (1.4-6.5); GRAN % 71.6 % (42.2-75.2); HEMOGLOBIN 10.7 g/dl (12.5-16.0); LYMPH # 0.8 (1.2-3.4); LYMPH % 11.3 % (20.0-51.0); MEAN CELL VOLUME 90 fl (80.0-100.0); MEAN CORPUSCULAR HEMOGLOBIN 28 pg (27.0-31.0); MEAN CORPUSCULAR HGB CONC 31 g/dl (33.0-37.0); MEAN PLATELET VOLUME 9.7 fl (7.4-10.4); MONO # 0.5 (0.1-0.6); MONO % 6.7 % (1.7-9.3); PLATELET COUNT 246 K/mm3 (130-400); RED BLOOD COUNT 3.81 M/mm3 (4.10-5.30); REDCELL DISTRIBUTION WIDTH-CV 14.1 % (11.5-14.5)
[2019-09-07 06:46] LABS: HEMATOCRIT 34.3 % (37.0-47.0)
[2019-09-07 06:55] LABS: CREATININE, serum 0.83 (0.52-1.25); POTASSIUM 4.1 mmol/L (3.4-5.0)
[2019-09-07 07:44] VITALS: BP 147/56; PULSE 89; TEMP 97.6
--- NOTE | 2019-09-07 09:02 | NUR ---
Pt assessment completed and charted. Morning medications administered per DEC. Pt A&O, awake, sitting in bed eating breakfast. Pt denies dizziness, SOB, on 2L NC. Pulses strong bilaterally. Pt denies N/V/D, tolerating breakfast. Heart RRR, denies chest pain, palpitations. RAC INT IV flushes w/o complications. RLE edema 1+, LE jerkiness, pt states "it's new but I do have RLS". Pt has no other concerns expressed.
[2019-09-07 11:09] VITALS: BP 119/33; PULSE 80; TEMP 98.3
--- NOTE | 2019-09-07 13:07 | NUR ---
Pt sitting in recliner at bedside, assisted to bathroom, able to ambulate w/ 1 assist and walker. Pt started on 3% NS to LAC w/o complications at 30 ml/hr. No other concerns expressed.
[2019-09-07 20:04] VITALS: BP 139/71; PULSE 90; TEMP 98.5
[2019-09-07 20:15] LABS: CALCIUM 8.9 mg/dL (8.4-10.2); CREATININE, serum 0.96 (0.52-1.25); POTASSIUM 4.1 mmol/L (3.4-5.0)
[2019-09-07 21:24] LABS: RHEUMATOID FACTOR-SCREEN <15 IU/mL (0-29)
[2019-09-07 23:23] VITALS: BP 102/50; PULSE 83; TEMP 98.9
[2019-09-08 03:58] VITALS: BP 135/60; PULSE 95; TEMP 98.9
[2019-09-08 07:16] LABS: BASO % 0.4 % (0.0-2.0); EOS # 0.7 (0.0-0.7); EOS % 8.1 % (0-4.0); GRAN # 6.4 (1.4-6.5); GRAN % 76.4 % (42.2-75.2); HEMATOCRIT 37.7 % (37.0-47.0); HEMOGLOBIN 11.4 g/dl (12.5-16.0); LYMPH # 0.7 (1.2-3.4); LYMPH % 7.7 % (20.0-51.0); MEAN CELL VOLUME 94 fl (80.0-100.0); MEAN CORPUSCULAR HEMOGLOBIN 28 pg (27.0-31.0); MEAN CORPUSCULAR HGB CONC 30 g/dl (33.0-37.0); MEAN PLATELET VOLUME 9.7 fl (7.4-10.4); MONO # 0.6 (0.1-0.6); MONO % 6.9 % (1.7-9.3); PLATELET COUNT 268 K/mm3 (130-400); RED BLOOD COUNT 4.02 M/mm3 (4.10-5.30)
[2019-09-08 07:27] LABS: CREATININE, serum 0.91 (0.52-1.25); POTASSIUM 4.2 mmol/L (3.4-5.0)
[2019-09-08 07:54] VITALS: BP 143/54; PULSE 98; TEMP 98.6
--- NOTE | 2019-09-08 09:45 | NUR ---
Pt assessment completed and charted, morning medications administered per DEC. Pt sitting in recliner at bedside. Pt is A&O. SBA w/ walker and gait belt, steady gait. 3% NS completed prior to rounds, dc'd. RFA IV flushes w/o complications. Pt denies dizziness, SOB, N/V/D, chest pain, palpitations. BLE 1+ edema. Radial pulses strong bilaterally. LS diminishes throughout, heart RRR. Pt on 2L NC, will have Ex. Ox performed prior to DC. Pt educated on fluid restriction. All questions answered. Awaiting a few tests and rounds from physicians prior to discharge later this afternoon. No other concerns expressed at this time.
[2019-09-08 12:22] VITALS: BP 109/42; PULSE 81; TEMP 97.9
--- NOTE | 2019-09-08 13:34 | NUR ---
patient does not require oxygen during ambulation. patient maintained SPO2>92 DURING TESTING.
--- NOTE | 2019-09-08 14:00 | NUR ---
Coil Machine Supervisor attended clinical rounds with the team. Patient to discharge today. During rounds, Home Health vs. Outpatient Physical Therapy was reviewed. Patient states she would like Home Health and that she has previously worked with [facility]. Following rounds, SW met with patient who states she would like to go with [facility]. SW faxed referral to [facility]. SW to continue to follow.
--- NOTE | 2019-09-08 14:01 | NUR ---
Electrician Locomotive was notified by ROCK Cabrera that patient has decided to do outpatient PT instead of Home Health. Rick states patient appropriate for outpatient PT. NEELAM contacted [facility] to let them know to disregard referral.
[2019-09-08 14:23] VITALS: BP 147/68
--- NOTE | 2019-09-08 14:52 | NUR ---
Pt had ex ox completed, awaiting to be seen by cardiology. Flu shot administered per MAR. No other concerns expressed at this time. Pt ambulating well with walker.
[2019-09-08] MEDS ORDERED: TOPROL XL 50MG50 MG PO (16:07)
[2019-09-08] MEDS ORDERED: DIAMOX 250MG250 MG PO (16:09)
--- NOTE | 2019-09-08 18:00 | NUR ---
Pt discharge instructions discussed and reviewed w/ patient and family who verbalized understanding. All questions answered, no further concerns expressed. RFA INT IV dc'd w/ catheter tip in tact and no complications. Pt escorted out via WC by this nurse and family at side.
[2019-09-09 06:16] LABS: ANTISCLERODERMA-70 AB XXX
== END 2019-09-08 18:00 | disposition home or self-care (01) | DRG 291 ==
LOC: COL.ER 20:34 → MEDICAL 22:44
PROVIDERS: Family Medicine; Internal Medicine Pulmonary Disease; Nurse Practitioner Family; ADMIT Student in an Organized Health Care Education/Training Program
DX: I11.0 Hypertensive heart disease with heart failure (principal); J96.01 Acute respiratory failure with hypoxia; E87.1 Hypo-osmolality and hyponatremia; N39.0 Urinary tract infection, site not specified; E87.3 Alkalosis; I50.9 Heart failure, unspecified; G25.81 Restless legs syndrome; E83.42 Hypomagnesemia; H40.9 Unspecified glaucoma; Z96.651 Presence of right artificial knee joint; Z79.82 Long term (current) use of aspirin; Z79.891 Long term (current) use of opiate analgesic; Z87.891 Personal history of nicotine dependence; Z88.5 Allergy status to narcotic agent; I27.20 Pulmonary hypertension, unspecified; R91.1 Solitary pulmonary nodule; J44.9 Chronic obstructive pulmonary disease, unspecified; I08.1 Rheumatic disorders of both mitral and tricuspid valves
CPT/HCPCS: 99222-AI; 99232-AI; 99239; J1650; J1940; J3475; J7131; Q9967

== ENCOUNTER 2019-12-28 09:45 | Outpatient (RCR) | payer MEDICARE, BC ==
[~2019-12-28 09:45] MED LIST changes: +ATIVAN 0.50.5 MG/TAB PO; +CIPRO 500MG TA500 MG PO; +DIAMOX 250MG250 MG PO; +MELATONIN5 M1 PO; +NEURONTIN300 MG/CAP PO; +PRILOSEC 20MG20 MG PO; +TYLENOL 500MG500 MG PO
== END 2020-02-21 | disposition home or self-care (01) ==
LOC: MKS.ESL.PT
DX: M75.02 Adhesive capsulitis of left shoulder (principal)

== ENCOUNTER 2020-05-20 23:37 | Inpatient (IN) | payer MEDICARE, BC ==
[~2020-05-20] VITALS: Ht 152.4 cm; Wt 75.1 kg
[~2020-05-20 23:37] MED LIST changes: +MYRBETR50MG PO; +RESTASIS0.05% IO; -VITAMIN D31000 I1 PO; +VITAMIN D31000 IU PO
[2020-05-21 00:47] VITALS: BP 127/55; PULSE 96
[2020-05-21 00:54] LABS: BASO % 0.2 % (0.0-2.0); GRAN # 16.9 (1.4-6.5); GRAN % 91.6 % (42.2-75.2); HEMATOCRIT 37.2 % (37.0-47.0); HEMOGLOBIN 11.8 g/dl (12.5-16.0); LYMPH # 0.4 (1.2-3.4); LYMPH % 2.3 % (20.0-51.0); MEAN CELL VOLUME 87 fl (80.0-100.0); MEAN CORPUSCULAR HEMOGLOBIN 27 pg (27.0-31.0); MEAN CORPUSCULAR HGB CONC 32 g/dl (33.0-37.0); MEAN PLATELET VOLUME 9.8 fl (7.4-10.4); MONO % 5.5 % (1.7-9.3); PLATELET COUNT 263 K/mm3 (130-400); REDCELL DISTRIBUTION WIDTH-CV 13.9 % (11.5-14.5)
[2020-05-21 01:04] LABS: COLLECTION METHOD CLEAN CATCH
[2020-05-21 01:10] LABS: ALANINE AMINOTRANSFERASE 310 U/L (4-34); ALBUMIN 3.7 gm/dL (3.5-5.0); ALKALINE PHOSPHATASE 252 U/L (50-136); ANION GAP 8 mmol/L (7-16); AST,SGOT 387 U/L (15-37); BILIRUBIN,TOTAL 2.3 mg/dL (0.0-1.0); BLOOD UREA NITROGEN 14 mg/dL (7-17); CARBON DIOXIDE 28 mmol/L (22-30); CHLORIDE 96 mmol/L (98-107); CREATININE, serum 0.62 (0.52-1.25); GLUCOSE 132 mg/dL (74-106); LIPASE 42 U/L (23-300); POTASSIUM 3.8 mmol/L (3.4-5.0); SODIUM 131 mmol/L (137-145); TOTAL PROTEIN 7.6 gm/dL (6.4-8.2)
[2020-05-21 01:13] LABS: PH 6 (5-8); SQUAMOUS EPITHELIAL 0-2 /hpf; URINE APPEARANCE Clear; URINE BACTERIA None Seen /hpf; URINE BILIRUBIN Negative (NEGATIVE); URINE BLOOD Negative (NEGATIVE); URINE COLOR Yellow; URINE GLUCOSE Negative (NEGATIVE); URINE KETONE Negative (NEGATIVE); URINE LEUKOCYTE ESTERASE Trace (NEGATIVE); URINE NITRATE Negative (NEGATIVE); URINE PROTEIN(semi-quant) Negative (NEGATIVE); URINE RBC 0-2 /hpf
[2020-05-21 01:20] LABS: TROPONIN-I < 0.012 ng/mL (0.000-0.035)
[2020-05-21 04:06] VITALS: BP 150/57; PULSE 90; TEMP 98.2
[2020-05-21 04:30] LABS: INR 1.2 (0.8-3.0); PROTHROMBIN TIME 13.4 SECONDS (9.7-12.8)
--- NOTE | 2020-05-21 04:35 | NUR ---
PT ADMITTED WITH Dx OF UTI. PT NOW BEING SEEN BY NURSE PRACTITIONER.
[2020-05-21 07:18] VITALS: BP 130/47; BP 142/57; PULSE 87; TEMP 97.6
--- NOTE | 2020-05-21 09:00 | NUR ---
Patient resting in bed at this time. Patient is alert and oriented, answers questions appropriately. Patient asks when she will be allowed to eat and drink. Explained to patient that she is NPO currently for imaging studies and that the doctor will order a new diet when it is appropriate. Also discussed visitor policy with patient and encouraged her to discuss with doctor when he rounds when she will discharge. Patient verbalized understanding. Patient denied further needs at this time, call light within reach.
[2020-05-21 11:46] VITALS: BP 128/62; PULSE 86; TEMP 97.9
--- NOTE | 2020-05-21 13:46 | NUR ---
Plan: To return home with daughter Frances [phone] and her son as care support and her EMR. Patient reports that she does have a current DPOA, with her children listed. She resides in [facility]. Assess: SW met with patient at her bedside. Patient reported that she uses as walker and cane. Patient indicated that her PCP is Dr. Gonsales, with no upcoming appointments. Patient reported that she gets her medications from [facility] pharmacy with no concerns. Patient declined any services at this time reporting that she has family supports to aid her. Action: No further concerns noted at this time. Patient was educated about community supports.
--- NOTE | 2020-05-21 13:59 | NUR ---
Patient resting in bedside recliner at this time. patient remains alert and oriented. Provided clear liquids to patient per order. Administered scheduled pain medication per order. Patient denies further needs, call light within reach.
[2020-05-21 15:49] VITALS: BP 129/86; PULSE 88; TEMP 97.4
[2020-05-21 19:59] VITALS: BP 122/45; PULSE 91; TEMP 97.4
[2020-05-22] VITALS (7 sets, daily range): BP systolic 116–164; BP diastolic 44–69; PULSE 88–124; TEMP 97.2–98.9
[2020-05-22 06:58] LABS: BILIRUBIN,TOTAL 2.4 mg/dL (0.0-1.0); CALCIUM 8.4 mg/dL (8.4-10.2); CREATININE, serum 0.65 (0.52-1.25); MAGNESIUM 1.9 mg/dL (1.6-2.3); POTASSIUM 3.6 mmol/L (3.4-5.0); TOTAL PROTEIN 6.5 gm/dL (6.4-8.2)
[2020-05-22 07:22] LABS: BASO % 0.3 % (0.0-2.0); EOS # 0.2 (0.0-0.7); EOS % 1.8 % (0-4.0); GRAN # 7.6 (1.4-6.5); GRAN % 83.5 % (42.2-75.2); HEMOGLOBIN 10.2 g/dl (12.5-16.0); LYMPH # 0.6 (1.2-3.4); LYMPH % 6.7 % (20.0-51.0); MEAN CELL VOLUME 89 fl (80.0-100.0); MEAN CORPUSCULAR HEMOGLOBIN 28 pg (27.0-31.0); MEAN CORPUSCULAR HGB CONC 31 g/dl (33.0-37.0); MEAN PLATELET VOLUME 10.5 fl (7.4-10.4); MONO # 0.7 (0.1-0.6); MONO % 7.5 % (1.7-9.3); PLATELET COUNT 197 K/mm3 (130-400); RED BLOOD COUNT 3.67 M/mm3 (4.10-5.30); REDCELL DISTRIBUTION WIDTH-CV 14.5 % (11.5-14.5)
[2020-05-22 07:25] LABS: HEMATOCRIT 32.5 % (37.0-47.0)
--- NOTE | 2020-05-22 08:00 | NUR ---
Patient resting in bedside recliner at this time. Patient is dozing but rouses easily. IVF continue per order. Patient is NPO for ERCP at noon, AM medications held per hospitalist order. Patient denies needs at this time, call light within reach.
--- NOTE | 2020-05-22 12:32 | NUR ---
Patient off floor to endoscopy with periop staff via bed. Patient denied questions or needs.
--- NOTE | 2020-05-22 14:20 | NUR ---
Nocturnist Physician attempted to contact the patient's daugtherFrances to introduce oneself and revisit the discharge plan, left message. SW met with the patient to follow up and revisit the discharge plan. The patient will return home at discharge. She states she is independent at home. She lives alone but her son, Luan lives right next door, and her daughters are very supportive. PT/OT ordered. Will continue to monitor.
--- NOTE | 2020-05-22 15:24 | NUR ---
Initial visit; Patient thanked Independent Driver for looking in on her and offering God's blessings.
--- NOTE | 2020-05-22 19:11 | NUR ---
Patient returned to floor from endoscopy at approximately 1340. Patient is alert and oriented and pain is well controlled. IVF continue per order. VS WNL. Patient tolerating clear liquids well, denies further needs at this time, call light within reach.
--- NOTE | 2020-05-22 20:00 | NUR ---
PT UP IN CHAIR AT BEDSIDE, DOES NOT LIKE TO SLEEP IN BED EITHER HERE OR AT HOME. HAS CHRONIC BACK PAIN. KPAD TO BACK FOR COMFORT. PT IS ALERT AND ORIENTED X4. IVF TO LEFT FOREARM IV SITE, INFUSING WITHOUT PROBLEM. HAS SKIN TEAR TO RIGHT FORERM. DENIES NEED FOR PAIN MEDS AT THIS TIME.
--- NOTE | 2020-05-22 21:10 | NUR ---
HS MEDS GIVEN. STANDBY ASSIST TO BATHROOM, VOIDS AND BACK TO CHAIR. MILD EDEMA TO BILAT LOWER LEGS.
--- NOTE | 2020-05-23 02:16 | NUR ---
REPORTS BACK PAIN, MEDICATED WITH OXYCODONE 10MG PO NOW.
[2020-05-23 04:00] VITALS: BP 138/48; PULSE 99; TEMP 97.9
--- NOTE | 2020-05-23 06:13 | NUR ---
Up to bathroom, has large BM. Offers no concerns this AM.
[2020-05-23 06:40] LABS: BASO % 0.3 % (0.0-2.0); EOS # 0.1 (0.0-0.7); EOS % 1.1 % (0-4.0); GRAN # 7.7 (1.4-6.5); GRAN % 81.6 % (42.2-75.2); HEMOGLOBIN 11.4 g/dl (12.5-16.0); LYMPH # 0.8 (1.2-3.4); LYMPH % 8.6 % (20.0-51.0); MEAN CELL VOLUME 88 fl (80.0-100.0); MEAN CORPUSCULAR HEMOGLOBIN 27 pg (27.0-31.0); MEAN CORPUSCULAR HGB CONC 31 g/dl (33.0-37.0); MEAN PLATELET VOLUME 10.2 fl (7.4-10.4); MONO # 0.8 (0.1-0.6); MONO % 8.1 % (1.7-9.3); PLATELET COUNT 203 K/mm3 (130-400); RED BLOOD COUNT 4.22 M/mm3 (4.10-5.30); REDCELL DISTRIBUTION WIDTH-CV 14.5 % (11.5-14.5)
[2020-05-23 06:47] LABS: ALBUMIN 3.5 gm/dL (3.5-5.0); BILIRUBIN,TOTAL 3.2 mg/dL (0.0-1.0); CALCIUM 8.8 mg/dL (8.4-10.2); CREATININE, serum 0.57 (0.52-1.25); POTASSIUM 3.6 mmol/L (3.4-5.0); TOTAL PROTEIN 7.3 gm/dL (6.4-8.2)
--- NOTE | 2020-05-23 06:55 | NUR ---
Sitting up in chair with eyes open. Denies pain at this time. Patient says that she hopes to go home today. Denies any additional needs.
[2020-05-23 07:08] VITALS: BP 158/79; PULSE 102; TEMP 97.4
--- NOTE | 2020-05-23 09:52 | NUR ---
Follow-up visit; Patient receptive to Clean Up Supervisor looking in on her and wishing her well.
--- NOTE | 2020-05-23 09:58 | NUR ---
IV fluids dc'd per orders. Assisted patient up to bathroom. Gait steady with use of walker. Patient voids and has small BM. Returns to chair. Denies additional needs at this time.
[2020-05-23 11:46] VITALS: BP 151/74; PULSE 86; TEMP 97.3
--- NOTE | 2020-05-23 12:45 | NUR ---
Sitting up in chair watching TV. Denies pain or additional needs at this time.
--- NOTE | 2020-05-23 14:20 | NUR ---
Patient says that she is having "jumpy legs". Ambulate with the patient in halls. Returns to room and sits up in recliner. Denies additional needs.
--- NOTE | 2020-05-23 15:28 | NUR ---
Sitting up in recliner watching TV. Denies any pain or needs at this time.
--- NOTE | 2020-05-23 16:09 | NUR ---
Patient sitting up in recliner. Continues to have issues with "jumpy legs" and would like to see if we can get a medication for her to take for it. Explain that we will check with the provider and we would let her know. Spoke with SONJA Geller, and orders received. Will administer at this time.
[2020-05-23 16:34] VITALS: BP 152/85; PULSE 96; TEMP 97.7
--- NOTE | 2020-05-23 18:07 | NUR ---
Sitting up in bed attempting to eat clear liquid dinner. Patient says that she does not have much of an appetite. Explain to the patient that she does not have to force herself to eat. Patient says that she is done at this time. Denies any additional needs. Continues to cough and deep breath.
--- NOTE | 2020-05-23 18:08 | NUR ---
Sitting up in recliner. Patient felt that the dinner tray was too spicy and she wanted only mashed potatoes and gravy. Culinary informed and will bring up to the patient. Patient was also given chocolate pudding. Remains up in recliner. Denies additional concerns or needs at this time.
[2020-05-23 19:28] VITALS: BP 167/80; PULSE 100; TEMP 97.6
[2020-05-23 23:22] VITALS: BP 142/63; PULSE 99; TEMP 98.2
[2020-05-24 04:21] VITALS: BP 166/81; PULSE 100; TEMP 98.1
--- NOTE | 2020-05-24 05:13 | NUR ---
Patient has rested well throughout the night. Prefers to sleep in the recliner. PRN pain medication given at bedtime. Effective. Patient noted to have high blood pressure. Khushi Melendez APRN notified and ordered PRN Hydralazine 10mg IV. Administered. Patient SBA to the bathroom. Utilizes walker for ambulation. Patient has K-pad to lower back d/t chronic back pain. Patient denies any further needs. Will continue to monitor.
[2020-05-24 06:38] LABS: BASO % 0.3 % (0.0-2.0); EOS # 0.2 (0.0-0.7); EOS % 2.2 % (0-4.0); GRAN # 5.7 (1.4-6.5); HEMOGLOBIN 10.7 g/dl (12.5-16.0); LYMPH # 0.6 (1.2-3.4); LYMPH % 8.8 % (20.0-51.0); MEAN CELL VOLUME 87 fl (80.0-100.0); MEAN CORPUSCULAR HEMOGLOBIN 27 pg (27.0-31.0); MEAN CORPUSCULAR HGB CONC 31 g/dl (33.0-37.0); MEAN PLATELET VOLUME 10.9 fl (7.4-10.4); MONO # 0.8 (0.1-0.6); MONO % 10.3 % (1.7-9.3); PLATELET COUNT 202 K/mm3 (130-400); RED BLOOD COUNT 3.95 M/mm3 (4.10-5.30); REDCELL DISTRIBUTION WIDTH-CV 14.5 % (11.5-14.5)
[2020-05-24 06:46] LABS: ALBUMIN 3.3 gm/dL (3.5-5.0); CALCIUM 8.4 mg/dL (8.4-10.2); CREATININE, serum 0.47 (0.52-1.25); TOTAL PROTEIN 7.1 gm/dL (6.4-8.2)
[2020-05-24 06:48] LABS: HEMATOCRIT 34.2 % (37.0-47.0)
[2020-05-24 08:00] VITALS: BP 136/66; PULSE 103; TEMP 98.2
--- NOTE | 2020-05-24 08:52 | NUR ---
PT REFUSING BREATHING TXS
--- NOTE | 2020-05-24 09:26 | NUR ---
PATIENT GIVEN PRN ROXICODONE AT THIS TIME FOR HER CHRONIC BACK PAIN. PATIENT AM ASSESSMENT COMPLETE. PATIENT SITTING UP IN CHAIR WITH K-PAD TO THE BACK. CALL LIGHT WITHIN REACH. PATIENT DENIES ANY OTHER NEEDS AT THIS TIME.
--- NOTE | 2020-05-24 09:47 | NUR ---
Almond Paste Mixer attended clinical rounds with the team. NEELAM contacted the patient's daughter, Frances to be present via speaker phone. After rounds, NEELAM discussed discharge planning with Frances. Frances will stay with the patient for a few days after discharge. The patient's son lives next door and will also provide support. NEELAM met with the patient and provided Medicare.[employer]'s list of STEEL ERECTOR APPRENTICE to the patient. The patient was agreeable to [facility] and chose [facility] STEEL ERECTOR APPRENTICE. She has had them in the past. NEELAM presented the IM form to the patient. She understood and signed the form. A copy was provided to the patient and original was placed in the chart.
[2020-05-24] MEDS ORDERED: AMOXICILLIN 8751 TAB PO (10:40)
[2020-05-24] MEDS ORDERED: SENNA-S 50 MG-81 TAB PO (10:41)
[2020-05-24 11:22] VITALS: BP 143/58; PULSE 79; TEMP 97.7
--- NOTE | 2020-05-24 14:25 | NUR ---
DISCHARGE INSTRUCTIONS REVIEWED WITH PATIENT. QUESTIONS SOUGHT AND ANSWERED. PATIENT PERSONAL BELONGINGS GATHERED. PATIENTS LEFT FOREARM INT DISCONTINUED PER PENDING DISCHARGE. TIP INTACT. PATIENT TOLERATED WELL. RIGHT FOREARM SKIN TEAR RE-DRESSED WITH NON-ADHERANT GAUZE PAD AND TEGADERM. PATIENT TAKEN TO PERSONAL VEHICLE VIA WHEELCHAIR BY SURGICAL STAFF. PATIENT DISCHARGED.
--- NOTE | 2020-05-24 15:26 | NUR ---
The [facility] The patient will be getting PT/OT/Nursing services. NEELAM faxed discharge orders. NEELAM contacted Rosacarlos with [facility] and they will be out to visit the patient on 05/25. There are no additional needs at this time.
== END 2020-05-24 14:25 | disposition home health service (06) | DRG 871 ==
LOC: COL.ER 23:37 → SURG 05-21 02:58
PROVIDERS: Emergency Medicine; Internal Medicine Gastroenterology; Nurse Practitioner Family; ADMIT Internal Medicine
PROC: 0F798ZZ Dilation of Common Bile Duct, Via Natural or Artificial Opening Endoscopic (ICD-10-PCS; principal; 2020-05-22 12:30)
DX: A41.9 Sepsis, unspecified organism (principal); J96.01 Acute respiratory failure with hypoxia; N39.0 Urinary tract infection, site not specified; E87.1 Hypo-osmolality and hyponatremia; K83.09 Other cholangitis; I10 Essential (primary) hypertension; G25.81 Restless legs syndrome; I27.20 Pulmonary hypertension, unspecified; E80.6 Other disorders of bilirubin metabolism; R65.20 Severe sepsis without septic shock; R74.0 Nonspecific elevation of levels of transaminase and lactic acid dehydrogenase [LDH]; I25.10 Atherosclerotic heart disease of native coronary artery without angina pectoris; H40.9 Unspecified glaucoma; G89.29 Other chronic pain; K57.10 Diverticulosis of small intestine without perforation or abscess without bleeding; E86.0 Dehydration; Z20.828 Contact with and (suspected) exposure to other viral communicable diseases; Z87.891 Personal history of nicotine dependence
CPT/HCPCS: 99222-AI; 99233-AI; 99239; C1769; J0360; J0696; J2405; J2543; J2704; J3010; J7030; J7050; Q9967

== ENCOUNTER 2020-06-21 09:37 | Day surgery (SDC) | payer MEDICARE, BC ==
[2020-06-21] VITALS (9 sets, daily range): BP systolic 126–187; BP diastolic 50–82; PULSE 72–86; TEMP 97.8–98.1
[~2020-06-21] VITALS: Ht 152.4 cm; Wt 73.2 kg
[~2020-06-21 09:37] MED LIST changes: +AMOXICILLIN 8751 TAB PO
[2020-06-21] MEDS ORDERED: SENNA-S 50 MG-81 TAB PO (10:03)
[2020-06-21] MEDS ORDERED: TOPROL XL 25MG25 MG PO (10:05)
[2020-06-21 10:43] LABS: HEMATOCRIT 39.7 % (37.0-47.0); HEMOGLOBIN 12.2 g/dl (12.5-16.0); MEAN CELL VOLUME 88 fl (80.0-100.0); MEAN CORPUSCULAR HEMOGLOBIN 27 pg (27.0-31.0); MEAN CORPUSCULAR HGB CONC 31 g/dl (33.0-37.0); MEAN PLATELET VOLUME 9.9 fl (7.4-10.4); PLATELET COUNT 252 K/mm3 (130-400); RED BLOOD COUNT 4.51 M/mm3 (4.10-5.30); REDCELL DISTRIBUTION WIDTH-CV 14.4 % (11.5-14.5)
[2020-06-21 10:47] LABS: INR 1.1 (0.8-3.0); PROTHROMBIN TIME 12.5 SECONDS (9.7-12.8)
[2020-06-21 10:52] LABS: CALCIUM 9.1 mg/dL (8.4-10.2); CREATININE, serum 0.65 (0.52-1.25); POTASSIUM 4.1 mmol/L (3.4-5.0)
--- NOTE | 2020-06-21 12:10 | NUR ---
SEE MERGE DOCUMENTATION FOR MEDICATION ADMINISTRATION TIMES AND INTRA/POST PROCEDURE SEDATION ASSESSMENTS.
--- NOTE | 2020-06-21 13:54 | NUR ---
PATIENT GOT UP TO THE FLOOR FROM THE CAR SALES REPRESENTATIVE. PATIENT IS ALERT AND ORIENTATED. LUNG SOUNDS ARE CLEAR. PATIENT DOES NOT HAVE ANY SWELLING. WATER WAS GIVEN TO THE PATIENT AND SHE TOOK HER ANTIBIOTIC. PULSES ARE EQUAL AND BILATERAL. PATIENT PACEMAKER IS LEFT UPPER CHEST. PATIENT IS ON TELEY. VITAL SIGNS ARE STABLE. PATIENT LIVES ALONE BUT HER DAUGHTER IS VERY CLOSE IN HER CARES. DAUGHTER IS AT BEDSIDE RIGHT NOW. PATIENT DOES HAVE AN ALLERGY TO CODEINE. PATIENT ONLY CONCERN IS THAT SHE IS LEFT HANDED AND ONLY HAS HER RIGHT ARM AVALIABLE. PATIENT WAS ORIENTATED TO THE ROOM, EDUCATED ABOUT USING THE CALL LIGHT AND CALLING FOR HELP.
--- NOTE | 2020-06-21 16:29 | NUR ---
Dog Races Manager met with the patient and the patient's daughter, Frances to complete initial intake. The patient lives alone in [place]. The patient reports she had lots of support in her children. Her son Luan lives next door to her. The patient has a cane, walker and is independent with ADLs. The patient's PCP is Dr. Gonsales and patient receives medications from [facility]. The patient does not drive and Frances picks up the patient's medications. The patient does not have advanced directives in the EMR but states they are complete and they designate her children, Frances, Danyelle, and Luan. The patient receives [facility]. PT/OT/Nursing. The patient plans to return home and will resume these HHS. The patient is obs status and will not need new HH orders. There are no additional needs at this time.
--- NOTE | 2020-06-21 18:25 | NUR ---
patient has been uneventful since she got to the floor. she used the restroom and then sat in the chair. got some prn pain medication that helped alleviate some pain she was having in her back. no hematoma noted to the sight. patient is a stand by assist. will report off to shift stacker.
--- NOTE | 2020-06-21 20:00 | NUR ---
Patient is alert and oriented and sitting up in the chair. She ambulates to the restroom with standby assist and a walker. Left arm is currently immobilized in sling. Left chest pacemaker insertion site is covered with gauze and paper tape; No bleeding is present. Patient states pain level 7/10 generalized from her arthrtitis. 10mg oxycodone administered. Will continue to monitor.
[2020-06-22 02:54] VITALS: BP 140/58; PULSE 88; TEMP 97.8
--- NOTE | 2020-06-22 06:21 | NUR ---
Patient has had a restful night; She prefers to sleep in the recliner. She has complained of significant pain all over her body from chronic arthritis.
--- NOTE | 2020-06-22 06:21 | NUR ---
Pacemaker interrogation complete at 0600 this am. No bleeding is present and patient only complains of mild soreness at the site. Will continue to monitor.
[2020-06-22 07:12] LABS: BASO # 0.1 (0.0-0.2); BASO % 0.4 % (0.0-2.0); EOS # 0.2 (0.0-0.7); EOS % 1.9 % (0-4.0); GRAN # 9.7 (1.4-6.5); GRAN % 83.5 % (42.2-75.2); HEMATOCRIT 38.6 % (37.0-47.0); HEMOGLOBIN 11.9 g/dl (12.5-16.0); LYMPH # 0.9 (1.2-3.4); LYMPH % 7.9 % (20.0-51.0); MEAN CELL VOLUME 89 fl (80.0-100.0); MEAN CORPUSCULAR HEMOGLOBIN 27 pg (27.0-31.0); MEAN CORPUSCULAR HGB CONC 31 g/dl (33.0-37.0); MEAN PLATELET VOLUME 10.6 fl (7.4-10.4); MONO # 0.7 (0.1-0.6); PLATELET COUNT 225 K/mm3 (130-400); RED BLOOD COUNT 4.34 M/mm3 (4.10-5.30); REDCELL DISTRIBUTION WIDTH-CV 14.6 % (11.5-14.5)
[2020-06-22 07:14] LABS: CREATININE, serum 0.7 (0.52-1.25)
[2020-06-22 08:48] VITALS: BP 128/50; PULSE 81; TEMP 98.1
--- NOTE | 2020-06-22 11:18 | NUR ---
First visit from the oral surgery technician. No needs right now.
[2020-06-22 12:33] VITALS: BP 120/52; PULSE 80; TEMP 97.6
--- NOTE | 2020-06-22 12:48 | NUR ---
patient is sitting up in her bed. daughter at bedside. patient is waiting for cardio to come and see her to see if she can be discharged.
[2020-06-22] MEDS ORDERED: CEPHALEXIN500 M1 PO (15:21)
--- NOTE | 2020-06-22 16:36 | NUR ---
The patient will discharge home today, 06/22. She will continue with [facility]. PT/OT/Nursing services. The patient was obs and no new orders are required. SW contacted [facility] and they will resume services.
== END 2020-06-22 16:48 ==
LOC: COL.CAR → MEDICAL 13:30 → COL.CAR 06-22 16:48
PROVIDERS: Internal Medicine Cardiovascular Disease
DX: I49.5 Sick sinus syndrome (principal); R55 Syncope and collapse; I47.1 Supraventricular tachycardia; I10 Essential (primary) hypertension; Z88.5 Allergy status to narcotic agent; I08.0 Rheumatic disorders of both mitral and aortic valves
CPT/HCPCS: C1785; C1894; C1898; J0690; J2250; J3010; J7030; Q9967

== ENCOUNTER → 2021-10-03 | Outpatient (CLI) | payer MEDICARE, BC ==
[~2021-10-03] MED LIST changes: +BETAPACE 80MG80 MG PO; +CEPHALEXIN500 M1 PO; +ELIQUIS 5MG PO; +PRAVACHOL 40MG40 MG PO; +TOPROL XL 25MG25 MG PO
== END ==
LOC: COL.RAD 11:27
DX: R39.14 Feeling of incomplete bladder emptying (principal); R82.998 Other abnormal findings in urine; Z87.440 Personal history of urinary (tract) infections

== ENCOUNTER 2023-01-13 12:28 | Day surgery (SDC) | payer MEDICARE, BC ==
[2006-09-09 06:16] VITALS: BP 149/69
[2023-01-13] VITALS (10 sets, daily range): BP systolic 114–170; BP diastolic 34–74; PULSE 72–85; TEMP 97.2–97.9
[~2023-01-13] VITALS: Ht 154.9 cm; Wt 73.2 kg
[~2023-01-13 12:28] MED LIST changes: -CRANBERRY FRUI425 MG PO; +CRANRX500 MG PO
[2023-01-13] MEDS ORDERED: ALDACTONE 25MG25 M1 PO (13:06)
--- NOTE | 2023-01-13 19:25 | NUR ---
pt arrived to room 326 from PACU, alert and oriented, family @ bedside, dressing to left elbow CDI, ice pack in place, arm in sling. IV and IVF infusing per PIV in RW. pt able to stand/pivot to BSC to void. no c/o pain @ this time. started on clears. no N/V reported.
[2023-01-14] VITALS: BP 129/57; BP 141/54; PULSE 89; TEMP 97.8
[2023-01-14 03:57] VITALS: BP 133/52; PULSE 77; TEMP 97.5
--- NOTE | 2023-01-14 05:50 | NUR ---
PUREWICK POSITION CHECKED AND PAD CHANGED UNDER PT AT THIS TIME WITH ASSISTANCE OF HELEN DIALLO. PUREWICK PLACED AROUND 0200 BY PT'S PRIMARY NURSE, MAYI REN BUT SOME LEAKING NOTED. PT STATED THAT IT WAS UNCOMFORTABLE, THIS RN CHECKED SUCTION AND TURNED DOWN FROM 100 TO 75, ALSO APPLIED MOISTURE BARRIER CREAM AROUND SITE AND REPOSITIONED FOR PT. AT THIS TIME, PT STATES HAS BEEN WORRIED IN ROOM EVERYTHING IS DIFFERENT HERE AND HAS HAD A BAD EXPERIENCE IN THE PAST WITH BEING LEFT ALONE AFTER SURGERY OVER A HOLIDAY WEEKEND. PT REPEATS IS WORRIED ABOUT BEING FORGOTTEN. PT IS IN ROOM DIRECTLY IN FRONT OF NURSES STATION, ROOM DOOR HAS BEEN KEPT OPEN PER PT REQUEST, AND PT USES CALL LIGHT APPROPRIATELY AND HAS HAD FREQUENT CHECKS BY THIS RN (ASSIGNED PT NEW GRAD RN THIS SHIFT), AND PRIMARY RN. PT REASSURED BY THESE THINGS AND CALMED. WILL CONTINUE TO MONITOR.
[2023-01-14 08:00] VITALS: BP 149/78; PULSE 75; TEMP 97.3
--- NOTE | 2023-01-14 09:48 | NUR ---
PT BACK TO BASELINE -
--- NOTE | 2023-01-14 10:22 | NUR ---
PT REASSURED THAT A PUREWICK WAS USED, AND NOT A BURDICK PLACED WITHOUT CONSENT. EDUCATION PROVIDED ON PUREWICK, PLACEMENT, PROCEDURES, AND SANITARY.
[2023-01-14 12:00] VITALS: BP 109/42; PULSE 67
--- NOTE | 2023-01-14 13:23 | NUR ---
PT TO BE DISCHARGED
--- NOTE | 2023-01-14 13:56 | NUR ---
PT DISCHARGED HOME WITH FAMILY. ALL DISCHARGE QUESTIONS ANSWERED, PAPERS SIGNED. PT LEFT IN WHEELCHAIR WITH [facility]. PT LEFT WITH ALL BELONGINGS.
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
--- NOTE | 2023-01-14 15:38 | NUR ---
Regional Planner attempted to complete intake with patient, however she requested SW return when her daughters, Frances and Danyelle arrived. SW followed up once daughters arrived and SW was advised by the daughters that they had concerns about patient's care overnight. NEELAM notified Missy, Film Painter. SW completed intake with daughters at bedside. [place] [facility] [place] and advised her son, Ruy lives next door. Patient's daughters advised they also check in on patient daily. Patient sees Dr. Oates at [facility] for primary care. Patient obtains medications from [facility] and advised her daughters brass pickler meds for her. Patient stated she does fine living home alone and plans to continue doing so. Patient's daughters stated they are always present while patient bathes. SW reviewed recommendation for 24/7 care and daughters advised they plan to provide this for patient. SW discussed Home Health services and provided Medicare.gov list of providers. Patient and family selected [facility]. SW also reviewed recommendation for vince walker, however patient and family stated the vince walker would not work for patient. NEELAM faxed referral to [facility] and was contacted by MAYI Longo who advised they can accept. NEELAM received a call from RN as patient was being discharged that the family wants a vince walker ordered. NEELAM contacted Gayla at [facility] and faxed referral and order for hemiwalker. Gayla advised it could be delivered to the home. NEEALM updated family who is agreeable to discharge now and have walker delivered to the home later. Discharge Plan: Home with [facility]
== END 2023-01-14 15:00 | disposition home or self-care (01) ==
LOC: SDCO 12:28 → SURG 19:50 → SDCO 01-14 15:00
DX: S42.402A Unspecified fracture of lower end of left humerus, initial encounter for closed fracture (principal); I48.91 Unspecified atrial fibrillation; K21.9 Gastro-esophageal reflux disease without esophagitis; W19.XXXA Unspecified fall, initial encounter; Y93.9 Activity, unspecified; Y92.9 Unspecified place or not applicable; W18.39XA Other fall on same level, initial encounter; Y93.89 Activity, other specified; Y92.89 Other specified places as the place of occurrence of the external cause; Z79.01 Long term (current) use of anticoagulants; Z95.0 Presence of cardiac pacemaker; Z87.891 Personal history of nicotine dependence
CPT/HCPCS: C1713; J0360; J0690; J1100; J1170; J1885; J2250; J2405; J2704; J2795; J3010; J3370; J7030; J7120

== ENCOUNTER 2023-06-09 13:45 | Outpatient (RCR) | payer MEDICARE, BC | END 2023-06-19 | disposition home or self-care (01) | LOC: MKS.ESL.OT | DX: M25.522 Pain in left elbow (principal); R53.1 Weakness; R26.89 Other abnormalities of gait and mobility ==

== ENCOUNTER 2024-09-14 13:27 | Inpatient (IN) | payer MEDICARE, BC ==
[~2024-09-14] VITALS: Wt 78.3 kg
[~2024-09-14 13:27] MED LIST changes: +DURICEF 500MG500 MG PO
--- NOTE | 2024-09-15 12:50 | NUR ---
RETRIEVED PT FROM PT ADMISSION, WALKED TO ROOM, 1L NC. ASSISTED PT FROM TRANSPORT BED TO BATHROOM. VOIDED. 1X ASSIST. PT ORIENTED X4. HARD OF HEARING. ASSISTED PT TO BED. DAUGHTER AND SON AT BEDSIDE. FALL PRECAUTIONS IN PLACE.
[2024-09-15] MEDS ORDERED: LIDODERM 5% PATC1 EA TP (12:54)
[2024-09-15] MEDS ORDERED: Polyethylene Glycol 3350 17 GM PDS PO PRN (13:00)
[2024-09-15] MEDS ORDERED: Naloxone 0.4 MG/ML VIAL IV PRN ×2 (13:00→14:00)
[2024-09-15] MEDS ORDERED: oxyCODONE 5 MG TAB PO PRN (13:00)
[2024-09-15] MEDS ORDERED: Sennosides/Docusate 8.6-50 MG TAB PO PRN (13:00)
[2024-09-15] MEDS ORDERED: Acetaminophen 325 MG TAB PO PRN (13:00)
[2024-09-15] MEDS ORDERED: DURICEF 500MG500 MG PO (13:28)
--- NOTE | 2024-09-15 14:00 | NUR ---
NEELAM met with patient's daughter Danyelle Baker ([phone]) to complete initial assessment for discharge planning. Patient working with PT at time of assessment. Danyelle reports that patient lives alone in her home with her son Luan living next door. Patient's daughter Danyelle and dtr Frances Chapa ([phone]) visit patient daily and provide assistance with ADLs as needed. Dtr Frances is DPOA for patient. Patient sees Dr. Portillo as her PCP and uses [facility]'s pharmacy without difficulty. Patient has cane, walker, grab bars and life alert for DME. Patient has a ramp into her home. Danyelle reported that she and her sister will provide 24 hour care for patient when she returns home. Probable home health at discharge. Discharge plan: re-eval
[2024-09-15 17:00] VITALS: BP_SYST 137
[2024-09-15 17:19] VITALS: BP 137/82; PULSE 70
[2024-09-15 17:38] VITALS: TEMP 96.5
[2024-09-15 19:18] VITALS: BP_SYST 137
--- NOTE | 2024-09-15 20:45 | NUR ---
Patient resting in bed. Denies any pain at this time. Needs met. Assessment complete. Patient appears drowsy, VS obtained. Patient A&O x4. Patient states "I just want to go home and ." Attempted to comfort patient. Call light and personal items in reach. Bed in low position and bed alarm on.
[2024-09-15] MEDS ORDERED: Docusate Sodium 100 MG CAP PO SCH (21:00)
[2024-09-15] MEDS ORDERED: Melatonin 3 MG TAB PO SCH (21:00)
[2024-09-15] MEDS ORDERED: Carboxymethylcellulose PF Ophth 0.4 ML DROPPERETTE OP SCH (21:00)
[2024-09-15] MEDS ORDERED: [UNRECOGNIZED DRUG - OTHER] TP SCH (21:00)
[2024-09-15] MEDS ORDERED: rOPINIRole 0.5 MG TAB PO SCH (21:00)
[2024-09-15] MEDS ORDERED: PETROLATUM TP SCH (21:00)
[2024-09-15] MEDS ORDERED: cycloSPORINE Ophth Emulsion **** subs to Carboxymethylcellulose 1 % Ophth Gel OP SCH (21:00)
[2024-09-15] MEDS ORDERED: Cephalexin 500 MG CAP PO SCH (21:00)
[2024-09-15] MEDS ORDERED: VITAMINS A TP SCH (21:00)
[2024-09-15] MEDS ORDERED: Apixaban 2.5 MG TABLET PO SCH (21:00)
[2024-09-15 21:04] VITALS: BP 141/83; PULSE 70; TEMP 97.3
--- NOTE | 2024-09-15 22:38 | NUR ---
Hospitalist Khushi called due to patient unable to sleep and requestins something to help her sleep. Recieved new orders. See MAR.
[2024-09-15] MEDS ORDERED: Melatonin 3 MG TAB PO ONE (22:45)
--- NOTE | 2024-09-16 06:00 | NUR ---
Upon entering room to give morning meds. Patient has oxygen on her head. When educating patient on keeping oxygen and her oxygen still drops a little too low without it patient states, "I know. That's why I took it off." Nasal cannula in place and attempted to comfort patient.
[2024-09-16 06:04] VITALS: BP 136/70; PULSE 69; TEMP 97.7
[2024-09-16 07:00] VITALS: BP_SYST 136
--- NOTE | 2024-09-16 07:45 | NUR ---
PT A&O. SOME CONFUSION NOTED THIS MORNING. PT STATED TO ME, "I JUST WANT TO ". PT ON 1L OF O2 VIA NC BUT REFUSING TO KEEP ON. OXYGEN SATURATION IN LOW 90s. PT C/O PAIN 07/29 AT THIS TIME. PRN PAIN MEDICATION ADMINISTERED. CRUSHED PT'S MEDS, IF ABLE TO, AND ADMINSTERED THEM IN APPLESAUCE. SHIFT ASSESSMENT COMPLETE. PT IS UP W/ ASSIST X1 W/ WALKER. NO FURTHER NEEDS AT THIS TIME. CALL LIGHT AND PERSONAL BELONGINGS WITHIN REACH.
[2024-09-16] MEDS ORDERED: Ferrous Sulfate 325 MG TAB PO SCH (08:00)
[2024-09-16] MEDS ORDERED: Cholecalciferol (Vit D3) 25 MCG (1,000 Units) TAB PO SCH (09:00)
[2024-09-16] MEDS ORDERED: Lidocaine 4% Topical Patch TP SCH (09:00)
[2024-09-16] MEDS ORDERED: Influenza Virus Vaccine, Hi-Dose Triv '24-25 (65 YR+) 0.5 ML SYRINGE IM SCH (09:00)
[2024-09-16 17:06] VITALS: BP 142/79; PULSE 69; TEMP 97.5
[2024-09-16 19:10] VITALS: BP_SYST 142
[2024-09-16] MEDS ORDERED: Melatonin 3 MG TAB PO SCH (21:00)
[2024-09-16] MEDS ORDERED: Gabapentin 100 MG CAP PO ONE (22:00)
[2024-09-17 05:35] VITALS: BP 144/74; PULSE 70; TEMP 97.4
[2024-09-17 07:00] VITALS: BP_SYST 144
--- NOTE | 2024-09-17 07:45 | NUR ---
Patient laying in bed, easily awakened with verbal command. A&Ox3. VSS 1L NC O2. Pillow under knees. Patient positioned in bed for comfort and for breakfast. Independent with feeds. Call light within reach. Bed alarm on
[2024-09-17 08:24] LABS: BASO % 0.3 % (0.0-2.0); EOS # 0.2 K/mm3 (0.0-0.7); EOS % 1.7 % (0.0-4.0); GRAN # 9.8 K/mm3 (1.4-6.5); GRAN % 81.6 % (42.2-75.2); HEMATOCRIT 26.3 % (37.0-47.0); HEMOGLOBIN 8.3 g/dl (12.5-16.0); LYMPH # 0.8 K/mm3 (1.2-3.4); LYMPH % 6.5 % (20.0-51.0); MEAN CELL VOLUME 94 fl (80.0-100.0); MEAN CORPUSCULAR HEMOGLOBIN 30 pg (27-31); MEAN CORPUSCULAR HGB CONC 32 g/dl (33.0-37.0); MEAN PLATELET VOLUME 10.8 fl (7.4-10.4); MONO # 1.1 K/mm3 (0.1-0.6); MONO % 9.1 % (1.7-9.3); PLATELET COUNT 279 K/mm3 (130-400); RED BLOOD COUNT 2.79 M/mm3 (4.10-5.30); REDCELL DISTRIBUTION WIDTH-CV 13.3 % (11.5-14.5)
[2024-09-17 08:49] LABS: ALBUMIN 2.3 g/dL (3.4-4.8); BILIRUBIN,TOTAL 0.6 mg/dL (0.2-1.2); CALCIUM 8.1 mg/dL (8.4-10.2); CREATININE, serum 1.39 mg/dL (0.57-1.11); POTASSIUM 4.5 mEq/L (3.5-4.5); TOTAL PROTEIN 5.6 g/dl (6.2-8.1)
[2024-09-17] MEDS ORDERED: Patient's Own Medication Item OP SCH (10:30)
[2024-09-17 17:35] VITALS: BP 86/46; PULSE 69; TEMP 97.5
[2024-09-17 19:26] VITALS: BP_SYST 86
--- NOTE | 2024-09-17 19:27 | NUR ---
RECEIVED CHANGE OF SHIFT REPORT FROM DAY SHIFT NURSE. PATIENT RESTING IN BED, EXIT ALARM ON, CALL LIGHT IN REACH. NO NEEDS REPORTED AT TIME OF REPORT.
[2024-09-17 21:19] VITALS: BP 149/77; PULSE 65
--- NOTE | 2024-09-17 21:32 | NUR ---
PATIENT REPORTED GENERALIZED/BACK PAIN, REQUESTED AND GIVEN NARCOTIC, SEE MAR. NO OTHER NEEDS REPORTED. OXYGEN CONTINUES PER NC AT 1LPM. DENIES NEED TO VOID AT THIS TIME.
[2024-09-18 05:24] VITALS: BP 148/60; PULSE 70; TEMP 97.5
[2024-09-18 05:43] LABS: BASO % 0.2 % (0.0-2.0); EOS # 0.2 K/mm3 (0.0-0.7); EOS % 1.3 % (0.0-4.0); GRAN # 12.1 K/mm3 (1.4-6.5); GRAN % 85.3 % (42.2-75.2); LYMPH # 0.7 K/mm3 (1.2-3.4); LYMPH % 5.1 % (20.0-51.0); MEAN CELL VOLUME 94 fl (80.0-100.0); MEAN CORPUSCULAR HGB CONC 32 g/dl (33.0-37.0); MEAN PLATELET VOLUME 10.9 fl (7.4-10.4); MONO # 1.1 K/mm3 (0.1-0.6); MONO % 7.4 % (1.7-9.3); PLATELET COUNT 282 K/mm3 (130-400); RED BLOOD COUNT 2.75 M/mm3 (4.10-5.30); REDCELL DISTRIBUTION WIDTH-CV 13.4 % (11.5-14.5)
[2024-09-18 05:49] LABS: HEMATOCRIT 25.7 % (37.0-47.0); HEMOGLOBIN 8.2 g/dl (12.5-16.0); MEAN CORPUSCULAR HEMOGLOBIN 30 pg (27-31)
--- NOTE | 2024-09-18 05:51 | NUR ---
REPORTING GENERAL 9/10 PAIN, "ALL OVER". SEE MAR FOR OXY GIVEN.
[2024-09-18 06:04] LABS: ALBUMIN 2.5 g/dL (3.4-4.8); BILIRUBIN,TOTAL 0.5 mg/dL (0.2-1.2); CALCIUM 8.3 mg/dL (8.4-10.2); CREATININE, serum 1.24 mg/dL (0.57-1.11); POTASSIUM 4.8 mEq/L (3.5-4.5); TOTAL PROTEIN 5.9 g/dl (6.2-8.1)
--- NOTE | 2024-09-18 06:28 | NUR ---
Primary nurse notified of chloride 87.
--- NOTE | 2024-09-18 06:47 | NUR ---
CHANGE OF SHIFT REPORT GIVEN TO DAY SHIFT NURSEEVERT.
[2024-09-18 07:00] VITALS: BP_SYST 148
--- NOTE | 2024-09-18 08:56 | NUR ---
PT UP TO BS WITH PIVOT TRANSFER. HAD SM BM AND VOIDED. ASSISTED WITH CLEANUP OF PT POST BM. RETURNED TO BED . PT TO PARTICIPATE FULLY.
[2024-09-18] MEDS ORDERED: Albuterol/Ipratropium 3 MG-0.5 MG/3 ML Neb Soln IH PRN (13:30)
[2024-09-18] MEDS ORDERED: Albuterol/Ipratropium 3 MG-0.5 MG/3 ML Neb Soln IH SCH (14:00)
[2024-09-18 18:10] VITALS: BP 150/74; PULSE 73; TEMP 97.5
--- NOTE | 2024-09-18 18:40 | NUR ---
RECEIVED CHANGE OF SHIFT REPORT FROM DAY SHIFT NURSE. PATIENT RESTING IN BED, VISITORS AT BEDSIDE. EXIT ALARM ON, CALL LIGHT IN REACH.
[2024-09-18 19:18] VITALS: BP_SYST 150
--- NOTE | 2024-09-19 00:05 | NUR ---
PATIENT ATTEMPTED TO VOID IN BATHROOM, UNSUCCESSFUL. PATIENT CALLED OUT A SECOND TIME AFTER PLACED IN BED AND REPORTED SHE VOIDED IN HER BRIEF.
--- NOTE | 2024-09-19 02:51 | NUR ---
PATIENT RESTING WITH EYES CLOSED, BREATHING EVEN/NONLABORED, DID NOT WAKE DURING NURSE ROUNDING. EXIT ALARM ON, CALL LIGHT IN REACH.
--- NOTE | 2024-09-19 03:30 | NUR ---
PATIENT REPORTS SOME URGE TO VOID THAT IS NOT VERY STRONG, [facility]. NO URGE TO VOID DURING BLADDER SCAN.
[2024-09-19 05:31] VITALS: BP 141/58; PULSE 70; TEMP 97.7
[2024-09-19 06:18] LABS: COLLECTION METHOD CATHETER
[2024-09-19 06:31] LABS: PH 5.5 (5.0-8.5); URINE APPEARANCE CLOUDY (CLEAR/HAZY); URINE BLOOD 3+ (NEGATIVE); URINE COLOR YELLOW (YELLOW); URINE GLUCOSE NEGATIVE (NEGATIVE); URINE KETONE NEGATIVE (NEGATIVE); URINE NITRATE NEGATIVE (NEGATIVE); URINE PROTEIN(semi-quant) 1+ (NEGATIVE); URINE UROBILINOGEN 0.2 E.U/dL (0.2-1.0)
[2024-09-19 06:43] LABS: BUDDING YEAST PRESENT (NOT PRESENT); URINE BACTERIA RARE /hpf (NONE SEEN)
--- NOTE | 2024-09-19 06:49 | NUR ---
CHANGE OF SHIFT REPORT GIVEN TO DAY SHIFT NURSEEVERT.
[2024-09-19 07:00] VITALS: BP_SYST 141
--- NOTE | 2024-09-19 11:37 | NUR ---
PT UP TO BR FROM RECLINER SEVERAL TIMES THIS AM. HAD BM AND THEN RETURNED TO BED.
[2024-09-19 17:43] VITALS: BP 166/70; PULSE 70; TEMP 97.5
[2024-09-19 19:17] VITALS: BP_SYST 166
--- NOTE | 2024-09-19 19:18 | NUR ---
RECEIVED CHANGE OF SHIFT REPORT FROM DAY SHIFT NURSE. PATIENT RESTING IN BED, HAD VISITORS AT TIME OF REPORT. NO NEEDS REPORTED AT TIME OF REPORT. EXIT ALARM ON, CALL LIGHT IN REACH.
--- NOTE | 2024-09-19 22:43 | NUR ---
PATIENT YELLED OUT LOUD, UPON ENTERING ROOM, OBSERVED PATIENT RESTING IN BED, EYES CLOSED WITH OXYGEN NASAL CANNULA OFF OF FACE. REPLACED NASAL CANNULA TO NARES WITH OXYGEN CONTINUING AT 1LPM. WHEN ASKED IF SHE NEEDED ANYTHING ELSE, PATIENT MUMBLED "WANT TO ". BED EXIT ALARM ON, CALL LIGHT WITHIN REACH.
--- NOTE | 2024-09-19 23:50 | NUR ---
PATIENT REPORTS HAVING WEIRD DREAMS AND DOESN'T KNOW WHAT IS GOING ON WITH HERSELF. DENIES CHEST PAIN/SHORTNESS OF BREATH. UP TO BATHROOM WITH NEEDING TO VOID. OXYGEN CONTINUES PER NC. NO OTHER NEEDS REPORTED AT THIS TIME.
--- NOTE | 2024-09-20 03:21 | NUR ---
PATIENT RESTING IN BED, EYES CLOSED, BREATHING EVEN AND NONLABORED. EXIT ALARM ON, CALL LIGHT IN REACH. DID NOT WAKE DURING NURSE ROUNDING.
[2024-09-20 06:00] VITALS: BP 152/78; PULSE 64; TEMP 98.7
[2024-09-20 07:14] VITALS: BP_SYST 152
[2024-09-20 08:06] LABS: BASO % 0.1 % (0.0-2.0); EOS # 0.1 K/mm3 (0.0-0.7); EOS % 0.6 % (0.0-4.0); GRAN # 11.3 K/mm3 (1.4-6.5); GRAN % 84.5 % (42.2-75.2); LYMPH # 0.7 K/mm3 (1.2-3.4); LYMPH % 5.4 % (20.0-51.0); MEAN CELL VOLUME 91 fl (80.0-100.0); MEAN CORPUSCULAR HGB CONC 33 g/dl (33.0-37.0); MEAN PLATELET VOLUME 11.7 fl (7.4-10.4); MONO # 1.1 K/mm3 (0.1-0.6); MONO % 8.4 % (1.7-9.3); PLATELET COUNT 286 K/mm3 (130-400); RED BLOOD COUNT 2.65 M/mm3 (4.10-5.30); REDCELL DISTRIBUTION WIDTH-CV 13.2 % (11.5-14.5)
[2024-09-20 08:07] LABS: HEMATOCRIT 24.2 % (37.0-47.0); MEAN CORPUSCULAR HEMOGLOBIN 30 pg (27-31)
[2024-09-20] MEDS ORDERED: Mag/Al Hydrox/Simeth Susp 30 ML CUP PO ONE (09:15)
--- NOTE | 2024-09-20 09:30 | NUR ---
Patient resting in bed. Minimal interest in breakfast, reports nausea. Overall reports not feeling great. Awaiting lab results. Dr.Olliphant gerber. Lon as ordered
[2024-09-20 10:05] LABS: ALBUMIN 2.6 g/dL (3.4-4.8); BILIRUBIN,TOTAL 0.8 mg/dL (0.2-1.2); CALCIUM 8.6 mg/dL (8.4-10.2); CREATININE, serum 1.09 mg/dL (0.57-1.11); MAGNESIUM 1.8 mg/dL (1.6-2.6); POTASSIUM 5.1 mEq/L (3.5-4.5); TOTAL PROTEIN 6.1 g/dl (6.2-8.1)
--- NOTE | 2024-09-20 10:32 | NUR ---
Critical labs called to , Also to Neetu CASILLAS-She placed orders
[2024-09-20] MEDS ORDERED: NS 1,000 ML IV SCH (10:45)
--- NOTE | 2024-09-20 11:29 | NUR ---
Patient up in chair. Ivf started to Rfa as ordered. We reviewed increasing gatorade and juice intake and limiting water intake as we trend labs. Also made her aware we need to send urine speciamen to lab. Patient continues to feel weak, tired, and nauseated. Light lunch ordered.
--- NOTE | 2024-09-20 11:58 | NUR ---
Per Danyelle request called her daughter Frances and update given over phone
[2024-09-20] MEDS ORDERED: Sodium Bicarbonate 650 MG TAB PO SCH (12:33)
[2024-09-20] MEDS ORDERED: Ondansetron 4 MG/2 ML VIAL IV PRN (13:00)
--- NOTE | 2024-09-20 14:34 | NUR ---
Therapy completed for the day. Patient resting in bed. Shower completed. IVf as ordered. Her daughters home for the afternoon. Snack ordred
[2024-09-20 16:24] LABS: CALCIUM 8.1 mg/dL (8.4-10.2); CREATININE, serum 1.12 mg/dL (0.57-1.11); POTASSIUM 5.4 mEq/L (3.5-4.5)
--- NOTE | 2024-09-20 16:29 | NUR ---
CRITICAL CHLORIDE CALLED TO ELENO CASILLAS, NO NEW ORDERS AT THIS TIME
--- NOTE | 2024-09-20 17:52 | NUR ---
SW met with pt, introduced self and explained role in discharge planning. Pt reports no needs at this time. Contact information for this SW written on pt's board.
[2024-09-20 18:00] VITALS: BP 113/72; PULSE 72; TEMP 97
[2024-09-20 18:27] VITALS: BP_SYST 113
--- NOTE | 2024-09-20 18:37 | NUR ---
Patient resting in bed. Family at her side. She tolerated milkshake for dinner.
--- NOTE | 2024-09-20 19:24 | NUR ---
PT IS IN BED RESTING AT THIS TIME.
[2024-09-20 19:39] LABS: CALCIUM 7.9 mg/dL (8.4-10.2); CREATININE, serum 1.14 mg/dL (0.57-1.11)
[2024-09-20 19:42] LABS: POTASSIUM 5.8 mEq/L (3.5-4.5)
[2024-09-20] MEDS ORDERED: Dextrose 50% Water 25 GM/50 ML SYRINGE IV ONE (20:00)
[2024-09-20] MEDS ORDERED: Insulin Lispro (HumaLOG) SQ ONE (20:00)
--- NOTE | 2024-09-20 20:13 | NUR ---
SONJA BAPTISTE NOTIFIED OF CRITICAL LAB VALUE. ORDERS PUT IN. THIS RN IS TRYING TO NOTIFY PHARMACY
[2024-09-20] MEDS ORDERED: Furosemide 40 MG/4 ML VIAL IV ONE (20:15)
--- NOTE | 2024-09-20 20:17 | NUR ---
THIS RN CALLEED HOSPITALIST TO VERIFY ORDERS
[2024-09-20] MEDS ORDERED: Sodium Zirconium Cyclosilicate for Oral Susp 10 GM PACKET PO ONE (20:30)
[2024-09-20 21:05] VITALS: BP 119/77
[2024-09-20 23:43] LABS: CALCIUM 8.2 mg/dL (8.4-10.2); CREATININE, serum 1.16 mg/dL (0.57-1.11); POTASSIUM 5.1 mEq/L (3.5-4.5)
[2024-09-21] VITALS (9 sets, daily range): BP systolic 104–122; BP diastolic 62–75; PULSE 69–77; TEMP 96–97.7
--- NOTE | 2024-09-21 00:16 | NUR ---
GAVE IV GLUCOSE PT ALERT AT THIS TIME.
[2024-09-21] MEDS ORDERED: Dextrose 50% Water 25 GM/50 ML SYRINGE IV ONE (00:30)
[2024-09-21] MEDS ORDERED: Dextrose 50% Water 25 GM/50 ML SYRINGE IV PRN ×2 (02:00→05:15)
[2024-09-21 03:30] LABS: CALCIUM 8.1 mg/dL (8.4-10.2); CREATININE, serum 1.2 mg/dL (0.57-1.11)
[2024-09-21] MEDS ORDERED: D10W 1,000 ML IV SCH (03:45)
--- NOTE | 2024-09-21 04:21 | NUR ---
READ CRITICAL LAB VALUE TO HONG CASILLAS, NO NEW ORDERS AT THIS TIME.
[2024-09-21] MEDS ORDERED: Glucagon 1 MG VIAL IM PRN (05:15)
[2024-09-21] MEDS ORDERED: Dextrose (Glucose) 15 GM (4 x 3.75 GM) Chewable TABLET PACK PO PRN (05:15)
--- NOTE | 2024-09-21 08:30 | NUR ---
PT DROWSY. WAKES TO VOICE AND TOUCH. NO C/O PAIN AT THIS TIME. MEDICATIONS ADMINISTERED AND SHIFT ASSESSMENT COMPLETE. PT STATES THAT SHE IS CONFUSED. PT HAS DEXTROSE RUNNING THROUGH PERIPHERAL IV IN RFA. PT'S FAMILY AT BEDSIDE. HELPED PT TRANSFER TO BEDSIDE COMMODE W/ HELP FROM AIDE. PT NOT TRANSFERRING WELL AT THIS TIME. PT IS WEAK. PT ATE A FEW BITES OF BREAKFAST. CALL LIGHT WITHIN REACH.
[2024-09-21 08:52] LABS: MEAN CELL VOLUME 95 fl (80.0-100.0); MEAN CORPUSCULAR HGB CONC 31 g/dl (33.0-37.0); MEAN PLATELET VOLUME 10.6 fl (7.4-10.4); PLATELET COUNT 322 K/mm3 (130-400); RED BLOOD COUNT 2.76 M/mm3 (4.10-5.30); REDCELL DISTRIBUTION WIDTH-CV 13.3 % (11.5-14.5)
[2024-09-21 09:00] LABS: HEMATOCRIT 26.3 % (37.0-47.0); HEMOGLOBIN 8.2 g/dl (12.5-16.0); MEAN CORPUSCULAR HEMOGLOBIN 30 pg (27-31)
[2024-09-21 09:08] LABS: CALCIUM 8.2 mg/dL (8.4-10.2); CREATININE, serum 1.26 mg/dL (0.57-1.11); POTASSIUM 5.5 mEq/L (3.5-4.5)
[2024-09-21 09:43] LABS: BAND 1 % (0-10); EOSINOPHIL 2 % (0-4); LYMPHOCYTE 4 % (20.0-51.0); NEUTROPHILS 85 % (42.0-75.2); PLATELET ESTIMATE NORMAL (NORMAL)
[2024-09-21 09:45] LABS: HYPOCHROMIA 2+
--- NOTE | 2024-09-21 13:00 | NUR ---
PT STATES THAT HER "STOMACH IS HURTING WORSE THAN BEFORE". ADMINISTERED PRN TYLENOL IN YOGURT. PT BARELY ABLE TO WAKE UP TO TAKE MEDICATION.
[2024-09-21] MEDS ORDERED: Mag/Al Hydrox/Simeth Susp 30 ML CUP PO SCH (17:00)
--- NOTE | 2024-09-21 19:52 | NUR ---
PT FAMILY IS AT BEDSIDE. PT ASSESSMENT HAS BEEN COMPLETED. PT AROUSES BUT IS CONFUSED AND WEAK. WHEN SPEAKING PT IS DIFFICULT TO UNDERSTAND. PT TRAY WAS TAKEN OUT OF ROOM- PT UNABLE TO EAT VERY MUCH, IF AT ALL. MOUTH SWABS WERE GIVEN TO FAMILY.
--- NOTE | 2024-09-21 22:16 | NUR ---
HONG CASILLAS CONTACTED ABOUT PT BEING UNRESPONSIVE
--- NOTE | 2024-09-21 22:21 | NUR ---
PT FAMILY NOTIFIED AT THE NUMBER [phone]
--- NOTE | 2024-09-21 22:37 | NUR ---
ASSESSMENT COMPLETED EARLIER. MEDICATIONS WERE NOT ADMINISTERED. PT HAS BECOME UNRESPONSIVE. SONJA BAPTISTE MADE AWARE AND HAS SET EYES ON THE PT. CHARGE NURSE AND HOUSE HAS ALSO SET EYES ON PT. FAMILY HAS BEEN MADE AWARE OF THE SITUATION AND IS ON THEIR WAY TO HOSPITAL.
--- NOTE | 2024-09-21 22:38 | NUR ---
AT THIS POINT VITAL SIGNS ARE STILL STABLE. PT IS JUST UNRESPONSIVE.
[2024-09-21] MEDS ORDERED: Scopolamine 1 MG Delivered 3-Day PATCH TD ONE (23:30)
--- NOTE | 2024-09-22 02:34 | NUR ---
PT FAMILY IS STATING THAT PT IS HYPERFIXATING ON WORDS WHICH IS CAUSING AGITATION.
[2024-09-22] MEDS ORDERED: LORazepam 2 MG/ML 1 ML VIAL IV ONE (02:45)
[2024-09-22 03:55] VITALS: BP 112/65; PULSE 71
[2024-09-22 06:27] LABS: BASO % 0.2 % (0.0-2.0); EOS # 0.2 K/mm3 (0.0-0.7); EOS % 1.5 % (0.0-4.0); GRAN # 10.9 K/mm3 (1.4-6.5); GRAN % 87.2 % (42.2-75.2); LYMPH # 0.5 K/mm3 (1.2-3.4); LYMPH % 3.9 % (20.0-51.0); MEAN CELL VOLUME 98 fl (80.0-100.0); MEAN CORPUSCULAR HGB CONC 31 g/dl (33.0-37.0); MEAN PLATELET VOLUME 11.1 fl (7.4-10.4); MONO # 0.8 K/mm3 (0.1-0.6); MONO % 6.6 % (1.7-9.3); PLATELET COUNT 303 K/mm3 (130-400); RED BLOOD COUNT 2.65 M/mm3 (4.10-5.30)
--- NOTE | 2024-09-22 06:33 | NUR ---
pt down at dialysis
[2024-09-22 06:37] LABS: CALCIUM 8.1 mg/dL (8.4-10.2); CREATININE, serum 1.8 mg/dL (0.57-1.11)
[2024-09-22 06:56] LABS: HEMOGLOBIN 8.1 g/dl (12.5-16.0); MEAN CORPUSCULAR HEMOGLOBIN 31 pg (27-31)
[2024-09-22 06:59] LABS: POTASSIUM 5.9 mEq/L (3.5-4.5)
--- NOTE | 2024-09-22 07:06 | NUR ---
critical labs reported to Herman amaya
[2024-09-22 07:49] VITALS: BP 92/46; PULSE 69
[2024-09-22 08:00] VITALS: BP_SYST 92
--- NOTE | 2024-09-22 08:00 | NUR ---
Pt. laying in bed with family at bedside. Pt. is minimally responsive. Pt. will moan and groan to painful stimuli. Shift assessment complete. Educated the family about comfort care measures and if at any time that they would be interested in this that we would make the aware. Family voice understanding. IV to rt. forearm patent, IV fluids infusing per orders. Family denies further needs.
--- NOTE | 2024-09-22 08:50 | NUR ---
Pt.'s family has voiced that they would like to move foward with comfort care measures. SONJA De Anda, and Dr. Sutton notified.
[2024-09-22] MEDS ORDERED: Carboxymethylcellulose PF Ophth 0.4 ML DROPPERETTE OP PRN (09:00)
[2024-09-22] MEDS ORDERED: Scopolamine 1 MG Delivered 3-Day PATCH TD SCH (09:00)
[2024-09-22] MEDS ORDERED: Morphine Oral Concentrate 20 MG/ML UD SL PRN (09:00)
[2024-09-22] MEDS ORDERED: Glycopyrrolate 0.2 MG/ML 1 ML VIAL IV PRN (09:00)
[2024-09-22] MEDS ORDERED: LORazepam 0.5 MG TAB PO PRN (09:00)
[2024-09-22] MEDS ORDERED: Atropine 1% Ophth Soln 2 ML BOTTLE SL PRN (09:00)
[2024-09-22] MEDS ORDERED: Lidocaine 4% Topical Patch TP SCH (09:00)
--- NOTE | 2024-09-22 09:30 | NUR ---
Peck catheter placed at this time. 16Fr. used, 10 ml balloon. With sterile technique peck was placed with 1 attempt. Pt. tolerated well. Clear yellow urine noted. Pericare provided. A&D ointment applied. Family at bedside deny further needs, at this time.
[2024-09-22] MEDS ORDERED: TRANSDERM-0.5 MG/21 TD (10:45)
[2024-09-22] MEDS ORDERED: DULCOLAX S10 MG/SUPP RC (10:45)
[2024-09-22] MEDS ORDERED: SYSTANE 0.4%-0.1 SOL OU (10:45)
[2024-09-22] MEDS ORDERED: ROXANOL 20MG20 MG/ML SL (10:47)
--- NOTE | 2024-09-22 14:15 | NUR ---
Occasional Babysitter was notified by [facility] Director that patient is on comfort care and family would like to talk about hospice at home. NEELAM met with patient's daughters, Frances and Danyelle at bedside. Patient is not responsive and unable to provide any input. NEELAM confirmed they would like to get patient home with hospice services so NEELAM provided Medicare.gov list of Hospice agencies and they chose [facility]. Family would like to get patient home today. NEELAM contacted Meng at [facility] and faxed referral. Family brought in DPOA- and NEELAM sent that to [facility] as well. NEELAM spoke with Meng, Director Digital Sales at [facility] and he stated they could accept patient today to start services at home. DME, including hospital bed, would be delivered at 1530 to the home. NEELAM set up [facility] to olive picker patient at 1530. EMS forms placed on chart. NEELAM met with family to provided transport time. NEELAM also faxed discharge orders to [facility] for review. Discharge Plan: Home on [facility]
--- NOTE | 2024-09-22 15:30 | NUR ---
EMS has arrived. Gave discharge packet to the family. Pt. transferred to the [facility] and escorted out with EMS.
--- NOTE | 2024-09-23 15:14 | NUR ---
Discharge QIM scores were reviewed by the team. Code of 88 chosen for eating was determined by team discussion to be the most usual performance for this patient during the discharge assessment period. Code of 88 chosen for oral hygiene was determined by team discussion to be the most usual performance for this patient during the discharge assessment period. Code of 88 chosen for toileting hygiene was determined by team discussion to be the most usual performance for this patient during the discharge assessment period. Code of 88 chosen for putting on/taking off footwear was determined by team discussion to be the most usual performance for this patient during the discharge assessment period. Code of 8 chosen for rolling left to right was determined by team discussion to be the most usual performance for this patient during the discharge assessment period. Code of 1 chosen for sit to lying was determined by team discussion to be the most usual performance for this patient during the discharge assessment period. Code of 1 chosen for lying to sitting was determined by team discussion to be the most usual performance for this patient during the discharge assessment period. Code of 3 chosen for sit to stand was determined by team discussion to be the most usual performance for this patient during the discharge assessment period. Code of 88 chosen for chair to bed was determined by team discussion to be the most usual performance for this patient during the discharge assessment period. Code of 88 for car transfer was determined by team discussion to be the most usual performance for this patient during the discharge assessment period. Code of 88 chosen for walking 10 feet was determined by team discussion to be the most usual performance for this patient during the discharge assessment period. Code of 88 chosen for walking 50 feet w/ 2 turns was determined by team discussion to be the most usual performance before interventions for this patient during the discharge assessment period. Code of 88 chosen for walking 150 feet was determined by team discussion to be the most usual performance for this patient during the discharge assessment period. Code of 88 chosen for walk 10 feet on uneven surface was determined by team discussion to be the most usual performance for this patient during the discharge assessment period. Code of 88 chosen for 1 step was determined by team discussion to be the most usual performance for this patient during the discharge assessment period. Code of 88 chosen for draft roller picker objects was determined by team discussion to be the most usual performance for this patient during the discharge assessment period.--PD Maura
== END 2024-09-22 15:41 | disposition hospice, home (50) | DRG 947 ==
PROVIDERS: Internal Medicine; Physician Assistant; ADMIT Physical Medicine & Rehabilitation Sports Medicine
DX: R53.81 Other malaise (principal); I21.4 Non-ST elevation (NSTEMI) myocardial infarction; G93.40 Encephalopathy, unspecified; N17.9 Acute kidney failure, unspecified; E87.20 Acidosis, unspecified; E87.1 Hypo-osmolality and hyponatremia; M86.68 Other chronic osteomyelitis, other site; Z66 Do not resuscitate; E16.2 Hypoglycemia, unspecified; R26.89 Other abnormalities of gait and mobility; R09.02 Hypoxemia; M48.07 Spinal stenosis, lumbosacral region; Z95.0 Presence of cardiac pacemaker; I48.0 Paroxysmal atrial fibrillation; N18.9 Chronic kidney disease, unspecified; E87.5 Hyperkalemia; E78.5 Hyperlipidemia, unspecified; G89.29 Other chronic pain; D64.9 Anemia, unspecified; G25.81 Restless legs syndrome; G47.00 Insomnia, unspecified; F41.9 Anxiety disorder, unspecified; L29.3 Anogenital pruritus, unspecified; Z79.01 Long term (current) use of anticoagulants; Z79.899 Other long term (current) drug therapy; Z79.891 Long term (current) use of opiate analgesic; Z74.09 Other reduced mobility; Z96.89 Presence of other specified functional implants
CPT/HCPCS: A9270; A9284; J0612; J1720; J1815; J1940; J2060; J2405; J7030